=== PATIENT | male | born 1965 | race Caucasian/White ===

== ENCOUNTER 2016-12-30 13:46 | Emergency (ER) | payer OTHER ==
[~2016-12-30] VITALS: Ht 172.7 cm; Wt 114.0 kg
[2016-12-30 13:48] VITALS: TEMP 37; Ht 172.7 cm; Wt 114.0 kg
[2016-12-30] MEDS ORDERED: ESCI1TAB10 PO (14:17)
[2016-12-30] MEDS ORDERED: QUET1TAB34 PO (14:17)
[2016-12-30] MEDS ORDERED: PRED10TA PO (14:17)
[2016-12-30] MEDS ORDERED: LISI-725 PO (14:17)
[2016-12-30] MEDS ORDERED: ZNTT/150 PO (14:17)
[2016-12-30] MEDS ORDERED: AZAT50TA25 PO (14:17)
[2016-12-30] MEDS ORDERED: BISO10TA4 PO (14:17)
[2016-12-30] MEDS ORDERED: GLIP2.5T11 PO (14:17)
[2016-12-30] MEDS ORDERED: POTA20TA16 PO (14:17)
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
[2016-12-30] MEDS ORDERED: BUPIVACAINE 0.5 % 5 MG/1 ML MPF 30ML VIAL INFIL ONE (14:45)
[2016-12-30] MEDS ORDERED: XYLOCAINE 1%/SOD BICARB 20 ML VIAL INFIL ONE (14:45)
--- NOTE | 2016-12-30 14:57 | DIAGNOSTIC IMAGING REPORT ---
RIGHT FINGER(S) MIN 2 VIEWS ROUTINE CLINICAL HISTORY: right 4th finger Right trauma. Pain. COMPARISON: None. DISCUSSION: Interval avulsion of the distal 50% distal phalanx right fourth finger. This is imaged in a separate image. It contains the avulsed bone fragment... Soft tissue and a fracture component of the distal phalanx is present. A single small ossific fragment is adjacent to or within the amputation site. More proximal aspect of the finger is unremarkable. Considerable soft tissue disruption IMPRESSION: 1. Traumatic avulsion of the distal aspect right fourth finger at the level of the mid distal phalanx. 2. The amputated component contains soft tissue as well as containing the tuft and distal aspect of the distal phalanx 3. Considerable soft tissue edematous change. The above report was generated using voice recognition software. It may contain grammatical, syntax or spelling errors. Electronically signed by: Cayden Schultz M.D. 12/30/2016 2:56 PM Dictated Date/Time: 12/30/2016 2:51 PM
[2016-12-30] MEDS ORDERED: CEFAZOLIN IV 2,000 MG in DEXTROSE 5% 50ML 50 ML IV STA (14:58)
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
[2016-12-30 15:56] LABS: BUN/CREATININE RATIO 12.3 (10-20); CALCIUM 10.3 mg/dl (8.5-10.1); POTASSIUM 3.3 mmol/L (3.5-5.1)
[2016-12-30] MEDS ORDERED: POTASSIUM CHLORIDE 10 MEQ TABCR PO STA (16:14)
[2016-12-30] MEDS ORDERED: CEPH500C2 PO (16:33)
[2016-12-30] MEDS ORDERED: HYDR-3983 PO (16:33)
[2016-12-30 17:03] VITALS: BP 164/101; PULSE 89; O2SAT 98
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
== END 2016-12-30 16:55 | disposition home or self-care (01) ==
LOC: C.EDB 13:50 → C.EDA 16:55
DX: S68.124A Partial traumatic metacarpophalangeal amputation of right ring finger, initial encounter (principal); W23.0XXA Caught, crushed, jammed, or pinched between moving objects, initial encounter; Y93.89 Activity, other specified; I10 Essential (primary) hypertension; N28.9 Disorder of kidney and ureter, unspecified; R73.03 Prediabetes; Z80.9 Family history of malignant neoplasm, unspecified; Z79.899 Other long term (current) drug therapy; Z79.52 Long term (current) use of systemic steroids

== ENCOUNTER 2019-04-27 12:05 | Inpatient (IN) ==
[2019-04-27] MEDS ORDERED: SODIUM CHLORIDE 0.9% 500 ML IV STA (13:46)
[2019-04-27] MEDS ORDERED: SODIUM CHLORIDE 0.9% 250 ML IV PRN (13:46)
[2019-04-27 13:56] LABS: Hematocrit (blood only) 23.9 % (42-52); Hemoglobin 8.2 g/dL (14.0-18.0); Mean Corpuscular Hgb Conc 34.3 g/dL (32-36); Mean Corpuscular Volume 104.8 fL (80-100); Mean Platelet Volume 8.9 fL (7.4-10.4); Nucleated RBC # (auto) 0.16 K/uL (0-0); Nucleated RBC % (auto) 1.4 %; Platelet Count 305 K/uL (130-400); RDW Coefficient of Variation 15.8 % (11.5-14.5); RDW Standard Deviation 59.7 fL (36.4-46.3); Red Blood Count 2.28 M/uL (4.7-6.1); White Blood Count 11.55 K/uL (4.8-10.8)
[2019-04-27 14:10] LABS: INR 1.1 (0.9-1.1); Partial Thromboplastin Ratio 0.7; Partial Thromboplastin Time 20.2 Seconds (21.0-31.0); Prothrombin Time 10.9 Seconds (9.0-12.0)
[2019-04-27] MEDS ORDERED: PANTOprazole 80 MG in DEXTROSE 5% 100 ML IV SCH (14:15)
[2019-04-27 14:18] LABS: Alanine Aminotransferase 37 U/L (12-78); Albumin Level 2.6 gm/dl (3.4-5.0); Blood Urea Nitrogen 44 mg/dl (7-18); Calcium 9.6 mg/dl (8.5-10.1); Carbon Dioxide 24 mmol/L (21-32); Chloride 107 mmol/L (98-107); Est GFR (African American) 42.4; Est GFR (Non-African American) 36.6; Glucose 93 mg/dl (70-99); Magnesium 1.9 mg/dl (1.8-2.4); Potassium 3.4 mmol/L (3.5-5.1); Sodium 139 mmol/L (136-145)
[2019-04-27 14:22] LABS: Albumin Globulin Ratio 0.7 (0.9-2); Alkaline Phosphatase 84 U/L (45-117); Aspartate Aminotransferase 11 U/L (15-37); Bilirubin,Total 0.3 mg/dl (0.2-1); Globulin 3.6 gm/dl (2.5-4.0); Total Protein 6.2 gm/dl (6.4-8.2)
[2019-04-27 14:41] LABS: Appearance Urine Clear (Clear); Bilirubin Urine Negative (Negative); Blood Urine Negative (Negative); Color Urine Yellow; Epithelial Cell Urine Auto 20-30 /lpf (0-5); Glucose Urine UA Negative (Negative); Ketones Urine Trace (Negative); Leukocyte Esterase Urine Negative (Negative); Nitrite Urine Negative (Negative); Protein Urine 2+ (Negative); RBC Urine Automated 0-4 /hpf (0-4); Specific Gravity Urine 1.015 (1.000-1.030); Urobilinogen Urine Negative (Negative)
[2019-04-27] MEDS: PANTOprazole 40 MG in DEXTROSE 5% 100 ML IV SCH ×2 (14:51→20:46)
--- NOTE | 2019-04-27 14:57 | CT Scan Report ---
CT SCAN OF THE ABDOMEN AND PELVIS WITHOUT CONTRAST CLINICAL HISTORY: right flank pain COMPARISON STUDY: No previous studies for comparison. TECHNIQUE: CT scan of the abdomen and pelvis was performed from the lung bases to the proximal femurs . Images are reviewed in the axial, sagittal, and coronal planes. IV contrast was not administered fo r this examination. A dose lowering technique was utilized adhering to the principles of ALARA. CT DOSE: 1025.13 mGycm FINDINGS: Lower chest: The heart is normal in size and configuration, without pericardial effusion. The lung ba ses and pleural spaces are clear. There is visualization of the interventricular septum of the heart. This finding implies anemia. Please correlate with CBC. Liver: The unenhanced liver is normal in size, contour, and attenuation. There is no intrahepatic davidson iary ductal dilatation. Gallbladder: Cholelithiasis Spleen: Normal in size and attenuation. Pancreas: No focal masses are visualized. The pancreas is relatively formless with lack of the normal rectal interdigitations. Adrenal glands: Unremarkable. Kidneys: There is right-sided nephrolithiasis. There is no hydronephrosis. No ureteral calculi are vi sualized. Bowel: There are no transition zones indicate bowel obstruction. The appendix appears normal. There i s no acute diverticulitis. Peritoneum: There is no intraperitoneal free air or abdominal ascites. There are small fat-containing left inguinal hernia Vasculature: The abdominal aorta is normal in course and caliber. Adenopathy: None. Pelvic viscera: The bladder, and pelvic viscera are unremarkable. Skeletal structures: No destructive osseous lesions are seen. IMPRESSION: 1. No evidence of bowel obstruction. No evidence of free air 2. Right-sided nephrolithiasis. No evidence of hydronephrosis. No ureteral calculi identified 3. Normal appendix. No evidence of acute diverticulitis 4. Cholelithiasis 5. Visualization of the intraventricular septum the heart. This finding implies anemia. 6. Small fat-containing left inguinal hernia Electronically signed by: João Lantigua M.D. 04/27/2019 2:55 PM
[2019-04-27 15:07] LABS: Bacteria Urine Automated 1+ (Negative); Mucus Urine Present (None Prsent); Sperm Urine Present (None Prsent)
--- NOTE | 2019-04-27 16:03 | History & Physical Report ---
Date of Service April 27, 2019 Assessment & Plan (1) Acute upper GI bleed: (2) Symptomatic anemia: This is a 53yo M with a PMH of sarcoidosis, PILO on CPAP, CKD IIIb, DM II, GERD, depression and other medical problems listed below who presents with right flank pain and black stool x5 days was found to have symptomatic anemia and GI bleed. -Hemodynamically stable. Hgb of 8.2 (most recent outpatient hgb from 03/11 of 10.7). BUN of 44 and Cr of 2.02 (baseline Cr ~ 2) -Started on Protonix bolus and drip in the ED -Will keep NPO with maintenance D5 NSS fluids -Type & crossed for 2u prbcs, which are held. Blood consent signed -Trending H&H Q6H -GI consult placed (3) Cellulitis of left lower extremity: History of recent fungal infection, treated with antifungal cream -Still with warmth and erythema -Treating with cefepime -Venous Doppler of left lower extremity to evaluate for DVT (4) Sarcoidosis: Continue azathioprine and prednisone -Follows with Dr. Dang in [place] (5) CKD (chronic kidney disease), stage III: At baseline kidney function with creatinine of 2.02 -Continue to monitor with daily BMP (6) Diabetes mellitus, type II: A1c of 9.4 in February. Repeat A1c in a.m. -Hold home agents -SSI while in-patient -BSG Q6H while NPO (7) HTN (hypertension): Normotensive -Continue amlodipine, bisoprolol (8) PILO on CPAP: CPAP HS DVT Ppx: SCDs in setting of acute GI bleed Code status: FULL PCP: Dr. Yelena Ruiz Dispo: Admit to PCU. Plan to return home once medically stable. Patient seen in collaboration with Dr. Fortune. Please see addendum. History of Present Illness Chief Complaint: R flank pain, melena Primary Care Provider: YELENA RUIZ This is a 53yo M with a PMH of sarcoidosis, PILO on CPAP, CKD IIIb, DM II, GERD, depression and other medical problems listed below who presents with right flank pain and black stool x5 days. Patient states he has had aching right-sided flank pain for 3 days as well as 5 days of black tarry semi-formed stool with 1- 2 episodes daily. Patient also with bright red blood on toilet paper when wiping. Endorses lightheadedness and dizziness but no visual changes, chest pain or SOB. Denies any fever, chills, nausea, vomiting, abdominal pain, dysuria or hematuria. Denies history of GI bleeds in the past. Did have colonoscopy and EGD a few years ago and believes they were normal but is not positive. Does not take any aspirin or NSAIDs. Is on chronic prednisone 30 mg daily for the past 5 years for sarcoidosis, for which he follows with Dr. Dang (nephro in [place]). Currently not experiencing flank pain. Has some redness and warmth on LLE that patient has noticed over the past week. Was treated for a fungal infection with antifungal cream by PCP. Non-tender to palpation. In ED, patient is hemodynamically stable. Hgb of 8.2 (most recent outpatient hgb from 03/11 of 10.7). BUN of 44 and Cr of 2.02 (baseline Cr ~ 2). Allergies Allergy/AdvReac Type Severity Reaction Status Date / Time No Known Allergies Allergy Verified 04/28/19 13:25 Home Medications Home Medications Medication Instructions Recorded Confirmed Type amlodipine 10 mg PO QAM 06/21/18 04/27/19 History atorvastatin [Lipitor] 20 mg PO QAM 06/21/18 04/27/19 History azathioprine 50 mg PO QID 06/21/18 04/27/19 History bisoprolol fumarate 10 mg PO BID 06/21/18 04/27/19 History lisinopril [Zestril] 40 mg PO QAM 06/21/18 04/27/19 History prednisone 30 mg PO QAM 06/21/18 04/27/19 History famotidine 20 mg PO QAM PRN 04/27/19 04/27/19 History glipizide 10 mg PO HS 04/27/19 04/27/19 History glipizide 20 mg PO QAM 04/27/19 04/27/19 History Past Med/Surg History Medical History CKD (chronic kidney disease), stage III (Chronic) Depression (Chronic) Diabetes mellitus, type II (Chronic) GERD (gastroesophageal reflux disease) (Chronic) PILO on CPAP (Chronic) Sarcoidosis (Chronic) Surgical History H/O hernia repair (Chronic) Family History Other Heart disease Social History Preferred Language: Polish Communication Ability: Effective Analyst Business Analysis Required: No Beliefs That Will Affect Care: None Current Living Situation: Parent Other Information That Helps Us Care for You: No Feels Safe at Home: Yes Safety Concerns: Feels Safe At This Time Smoking Status: Never smoker Hx Alcohol Use: Yes Alcohol Intake Frequency: Rarely Hx Substance Use: No Review of Systems Review of Systems: At least ten systems reviewed and negative except as noted in the HPI. Physical Exam Physical Exam: General Appearance: WD/WN, vitals as above, NAD, sitting up in bed, pleasant, conversing easily, obese Head: normocephalic, atraumatic Eyes: normal inspection, PERRL, conjunctivae normal, anicteric sclerae ENT: external ear and nose normal, oropharynx normal Neck: trachea midline, no thyromegaly normal visual inspection Respiratory: normal respiratory effort, lungs clear to auscultation, no wheeze, rales, rhonchi. Normal insp/exp effort, no accessory muscle use Cardiovascular: regular rate, rhythm, no murmur, normal peripheral pulses. Vessels: no JVD or carotid bruit Chest: normal inspection of chest Abdomen/GI: normal bowel sounds, soft, nontender, no hepatosplenomegaly Extremities/Musculoskelatal: no cyanosis or clubbing, extremities motor strength 5/5. +L anterior river with erythema and warmth, no open skin lesions Neurologic: PERRL, EOMI, accommodation nl, no face palsy, no dysarthria CN's II-XI intact bilaterally and moves all extremities Psychiatric: A+Ox3, euthymic affect Skin: no rashes, normal color, warm/dry Results & Data Vital Signs (Past 12 Hours) Vital Signs Temp Pulse Pulse Resp BP Pulse Ox 04/27/19 15:30 62 12 122/69 100 04/27/19 15:00 62 17 99 04/27/19 14:30 89 18 116/63 97 04/27/19 14:13 59 L 20 100 04/27/19 14:05 77 21 121/53 L 97 04/27/19 13:59 63 20 96 04/27/19 13:37 56 L 18 04/27/19 13:00 64 19 113/69 04/27/19 12:07 36.8 C 67 18 113/64 99 Laboratory Results Short CBC 04/27/19 Range/Units 13:40 WBC 11.55 H (4.8-10.8) K/uL Hgb 8.2 L (14.0-18.0) g/dL Hct 23.9 L (42-52) % Plt Count 305 (130-400) K/uL BMP 04/27/19 13:40 Sodium 139 Potassium 3.4 L Chloride 107 Carbon Dioxide 24 BUN 44 H Creatinine 2.02 H Glucose 93 Calcium 9.6 Liver Function 04/27/19 Range/Units 13:40 Total Bilirubin 0.3 (0.2-1) mg/dl AST 11 L (15-37) U/L ALT 37 (12-78) U/L Alkaline Phosphatase 84 (45-117) U/L Albumin 2.6 L (3.4-5.0) gm/dl Urine 04/27/19 Range/Units 14:10 Urine Color Yellow Urine Appearance Clear (Clear) Urine pH 5.0 (4.5-7.5) Ur Specific [place] 1.015 (1.000-1.030) Urine Protein 2+ H (Negative) Urine Glucose (UA) Negative (Negative) Diagnostic Findings CT abd/pelvis: IMPRESSION: 1. No evidence of bowel obstruction. No evidence of free air 2. Right-sided nephrolithiasis. No evidence of hydronephrosis. No ureteral calculi identified 3. Normal appendix. No evidence of acute diverticulitis 4. Cholelithiasis 5. Visualization of the intraventricular septum the heart. This finding implies anemia. 6. Small fat-containing left inguinal hernia Supervising Physician Co-Signing Physician Notes Attending Addendum: delayed entry date of service as noted above care coordinated with MEJIA Lauren please refer to her notes for full details, I agree with her notes patient seen and examined, records reviewed by myself as well on exam, patient seen resting in bed, comfortable, not in distress Reports weakness times few days, no shortness of breath, dizziness No active abdominal pain, nausea no other symptoms VS noted and reviewed oriented x 3 , not in distress, speaks in sentences with no effort nor accessory muscle use normal rate, regular rhythm, no murmurs clear breath sounds bilaterally non distended, soft, nontender Left lower leg: Positive edema, moderate erythema, and warmth, nontender no neuro deficits WBC 11.55 Hg 8.2 Crea 2.02 ASSESSMENT AND PLAN Melena, likely upper GI bleed Chronic prednisone use --Monitor H&H, maintain hemoglobin above 8 --Protonix drip N.p.o. for now, GI consulted possible EGD tomorrow Left lower leg cellulitis --Apparently started as a fungal infection, prescribed with antifungal cream with worsening of edema, erythema --Cefepime IV ordered --Doppler ultrasound ordered to rule out DVT Sarcoidosis --Continue usual azathioprine and prednisone Continue further work-up and management as an outpatient other diagnoses and plan of care as per MEJIA Lauren's notes Jag Fortune MD
--- NOTE | 2019-04-27 16:34 | Emergency Department Note ---
Entered by Farnaz Trinidad acting as a scribe for History of Present Illness General Chief complaint: Flank Pain Stated complaint: PAIN IN RIGHT SIDE Time Seen by Provider: 04/27/19 13:37 Source: patient History of Present Illness Onset (ago): day(s) 4 Location: right (flank) Pain Consistency: + constant Maximum Pain Intensity: 5 Current Pain Intensity: 5 Quality: + other (lower right flank pain ) Exacerbated By: + other (lifting heavy weights ) Associated symptoms: + weakness and + other (+red/black stool; +dizziness; - abdominal pain; -testicular pain; -urinary symptoms ) The patient is a 53 year old male, with past medical history of kidney disease, sarcoidosis, and diabetes, who presents to the Emergency Room with complaints of constant lower, right flank pain over the past 4 days. The patient rates the pain as a 5/10, and he states the pain is worsened with lifting heavy weights. The patient also states he has been noticing red and black stool for the past 5 days. The patient states he has noticed some blood upon wiping, as well. The patient states his present symptoms have made him feel weak and dizzy. The patient denies abdominal pain, testicular pain, or urinary symptoms. The patient denies prior history of GI bleed, and the patient also denies having a kidney in the past. The patient states his leg swelling currently is at baseline. The patient reports his blood sugar this morning was 76. He reports that his sugar is typically in between 75-100 in the mornings. The patient reports he has never had a blood transfusion in the past. Home Medications Home Medications Medication Instructions Recorded Confirmed Type amlodipine 10 mg PO QAM 06/21/18 04/27/19 History atorvastatin [Lipitor] 20 mg PO QAM 06/21/18 04/27/19 History azathioprine 50 mg PO QID 06/21/18 04/27/19 History bisoprolol fumarate 10 mg PO BID 06/21/18 04/27/19 History lisinopril [Zestril] 40 mg PO QAM 06/21/18 04/27/19 History prednisone 30 mg PO QAM 06/21/18 04/27/19 History glipizide 10 mg PO HS 04/27/19 04/27/19 History glipizide 20 mg PO QAM 04/27/19 04/27/19 History ascorbic acid (vitamin C) 500 mg PO DAILY #30 cap 05/01/19 Rx cephalexin 500 mg PO QID 7 Days #28 cap 05/01/19 Rx ferrous sulfate 325 mg PO DAILY #30 tab 05/01/19 Rx omeprazole 40 mg PO BID #90 cap 05/01/19 Rx omeprazole 40 mg PO DAILY #30 cap 05/01/19 Rx sucralfate 10 ml PO ACHS #840 ml 05/01/19 Rx Allergies Allergy/AdvReac Type Severity Reaction Status Date / Time No Known Allergies Allergy Verified 04/28/19 13:25 Past Med/Surg History Medical History CKD (chronic kidney disease), stage III (Chronic) Depression (Chronic) Diabetes mellitus, type II (Chronic) GERD (gastroesophageal reflux disease) (Chronic) PILO on CPAP (Chronic) Sarcoidosis (Chronic) Surgical History H/O hernia repair (Chronic) Family History Other Heart disease Social History Preferred Language: Latvian Communication Ability: Effective Seconds Inspector Required: No Beliefs That Will Affect Care: None Current Living Situation: Parent Other Information That Helps Us Care for You: No Feels Safe at Home: Yes Safety Concerns: Feels Safe At This Time Smoking Status: Never smoker Hx Alcohol Use: Yes Alcohol Intake Frequency: Rarely Hx Substance Use: No Review of Systems See HPI for pertinent positives & negatives. and A total of 10 systems reviewed and were otherwise negative Physical Exam Vital Signs Vital Signs - 24 hr 04/27/19 12:07 04/27/19 13:00 04/27/19 13:37 Temperature 36.8 C Temperature Source Oral Sepsis Recent Fever Within 48 Hours No Sepsis New/Unexplained Change in Mental Status No Sepsis Action Taken by Nursing No Action Required Pulse Rate 67 64 56 L Pulse Rate [Apical] Pulse Rate from SpO2 Sensor Pulse Rhythm [Apical] Pulse Strength [Apical] Respiratory Rate 18 19 18 Respiratory Effort / Characteristics Non-Labored Respiratory Depth Normal Respiratory Pattern Regular Blood Pressure 113/64 113/69 Blood Pressure Mean 80 83 Blood Pressure Position Sitting Blood Pressure Position [Right Arm] Pulse Oximetry 99 Oxygen Delivery Method Room Air 04/27/19 13:59 04/27/19 14:05 04/27/19 14:13 Temperature Temperature Source Sepsis Recent Fever Within 48 Hours Sepsis New/Unexplained Change in Mental Status Sepsis Action Taken by Nursing Pulse Rate 77 59 L Pulse Rate [Apical] 63 Pulse Rate from SpO2 Sensor 75 Pulse Rhythm [Apical] Regular Pulse Strength [Apical] Normal Respiratory Rate 20 21 20 Respiratory Effort / Characteristics Non-Labored Spontaneous Respiratory Depth Normal Respiratory Pattern Regular Blood Pressure 121/53 L Blood Pressure Mean 70 75 Blood Pressure Position Blood Pressure Position [Right Arm] Sitting Pulse Oximetry 96 97 100 Oxygen Delivery Method Room Air Room Air 04/27/19 14:30 04/27/19 15:00 04/27/19 15:30 Temperature Temperature Source Sepsis Recent Fever Within 48 Hours Sepsis New/Unexplained Change in Mental Status Sepsis Action Taken by Nursing Pulse Rate 89 62 62 Pulse Rate [Apical] Pulse Rate from SpO2 Sensor 62 62 61 Pulse Rhythm [Apical] Pulse Strength [Apical] Respiratory Rate 18 17 12 Respiratory Effort / Characteristics Respiratory Depth Respiratory Pattern Blood Pressure 116/63 122/69 Blood Pressure Mean 80 86 Blood Pressure Position Blood Pressure Position [Right Arm] Pulse Oximetry 97 99 100 Oxygen Delivery Method 04/27/19 15:57 04/27/19 16:00 Temperature Temperature Source Sepsis Recent Fever Within 48 Hours Sepsis New/Unexplained Change in Mental Status Sepsis Action Taken by Nursing Pulse Rate 59 L 57 L Pulse Rate [Apical] Pulse Rate from SpO2 Sensor 59 L 58 L Pulse Rhythm [Apical] Pulse Strength [Apical] Respiratory Rate 13 14 Respiratory Effort / Characteristics Respiratory Depth Respiratory Pattern Blood Pressure 122/69 118/74 Blood Pressure Mean 86 88 Blood Pressure Position Blood Pressure Position [Right Arm] Pulse Oximetry 99 100 Oxygen Delivery Method GENERAL: Patient is in no acute distress. HEENT: No acute trauma, normocephalic atraumatic, mucous membranes moist, no nasal congestion, no scleral icterus. NECK: No stridor, no adenopathy, no meningismus, trachea is midline. LUNGS: Clear to auscultation bilaterally, no wheeze, no rhonchi, breath sounds equal. HEART: Without murmurs gallops or rubs, regular rate and rhythm. ABDOMEN: Soft, nontender, bowel sounds positive, no hernias, no peritonitis. BACK: Right flank discomfort with percussion. EXTREMITIES: No cyanosis. Moderate bilateral pedal edema. Full range of motion of all the joints without pain or difficulty, no signs for acute trauma. RECTAL: Black stool, heme positive. NEUROLOGIC: Oriented x 3, no acute motor or sensory deficits, no focal weakness. SKIN: No rash, no jaundice, no diaphoresis. Pale. Course 1347: Past medical records reviewed. The patient was evaluated in room B3B. A co mplete history and physical exam was performed. 1358: I discussed the patient's case with Pharmacy. Pharmacy is going to give the patient a Protonix bolus and drip. 1520: I updated the patient on his case. 1530: I reviewed the patient's case with Erika Buck. Dr. Fátima Buck will evaluate the patient for further management. Consultations Consultation #1: I discussed the patient's case with Pharmacy. Pharmacy is going to give the patient a Protonix bolus and drip. Time: 13:58 Consultation #2: I reviewed the patient's case with Erika Buck. Dr. Fátima Buck will evaluate the patient for further management. Time: 15:30 Administered Medications Discontinued Medications Acetaminophen (Tylenol) 650 mg PO Q4H PRN PRN Reason: Pain Stop: 05/29/19 19:44 Last Admin: 04/29/19 20:04 Dose: 650 mg Documented by: [id number] Azathioprine (Imuran) 50 mg PO QID [facility] Stop: 05/28/19 16:59 Last Admin: 04/29/19 20:08 Dose: 50 mg Documented by: [id number] Admin: 04/29/19 17:13 Dose: 50 mg Documented by: [id number] Admin: 04/29/19 12:51 Dose: 50 mg Documented by: [id number] Admin: 04/29/19 07:41 Dose: 50 mg Documented by: [id number] Admin: 04/28/19 21:00 Dose: 50 mg Documented by: [id number] Admin: 04/28/19 17:44 Dose: 50 mg Documented by: [id number] Bisoprolol Fumarate (Bisoprolol Fumarate) 1 ea PO BID [facility] Stop: 05/28/19 20:59 Last Admin: 05/01/19 08:28 Dose: 1 ea Documented by: [id number] Admin: 04/30/19 21:42 Dose: 1 ea Documented by: [id number] Admin: 04/30/19 09:04 Dose: 1 ea Documented by: [id number] Admin: 04/29/19 22:53 Dose: 1 ea Documented by: [id number] Admin: 04/29/19 07:41 Dose: 1 ea Documented by: [id number] Admin: 04/28/19 21:02 Dose: 1 ea Documented by: [id number] Sodium Chloride (Nss) 500 mls @ 999 mls/hr IV .Q31M STA Stop: 04/27/19 14:16 Last Infusion: 04/27/19 14:53 Dose: 0 mls/hr Documented by: [id number] Admin: 04/27/19 14:09 Dose: 999 mls/hr Documented by: [id number] Pantoprazole Sodium 80 mg/ (Dextrose) 120 mls @ 480 mls/hr IV TODAY@1415 [facility] Stop: 04/27/19 14:29 Last Infusion: 04/27/19 14:38 Dose: 0 mls/hr Documented by: [id number] Admin: 04/27/19 14:23 Dose: 480 mls/hr Documented by: [id number] Pantoprazole Sodium 40 mg/ (Dextrose) 100 mls @ 20 mls/hr IV Q5H [facility] Stop: 04/29/19 11:59 Last Infusion: 04/29/19 14:05 Dose: 0 mls/hr Documented by: [id number] Admin: 04/29/19 10:23 Dose: 20 mls/hr Documented by: [id number] Infusion: 04/29/19 10:22 Dose: 20 mls/hr Documented by: [id number] Admin: 04/29/19 05:22 Dose: 20 mls/hr Documented by: [id number] Infusion: 04/29/19 05:22 Dose: 20 mls/hr Documented by: [id number] Admin: 04/29/19 00:25 Dose: 20 mls/hr Documented by: [id number] Infusion: 04/29/19 00:25 Dose: 20 mls/hr Documented by: [id number] Admin: 04/28/19 19:39 Dose: 20 mls/hr Documented by: [id number] Infusion: 04/28/19 16:50 Dose: 20 mls/hr Documented by: [id number] Admin: 04/28/19 11:50 Dose: 20 mls/hr Documented by: [id number] Infusion: 04/28/19 11:37 Dose: 20 mls/hr Documented by: [id number] Admin: 04/28/19 06:37 Dose: 20 mls/hr Documented by: [id number] Infusion: 04/28/19 06:08 Dose: 20 mls/hr Documented by: [id number] Admin: 04/28/19 01:08 Dose: 20 mls/hr Documented by: [id number] Infusion: 04/28/19 01:08 Dose: 20 mls/hr Documented by: [id number] Admin: 04/27/19 20:46 Dose: 20 mls/hr Documented by: [id number] Infusion: 04/27/19 19:51 Dose: 20 mls/hr Documented by: [id number] Admin: 04/27/19 14:51 Dose: 20 mls/hr Documented by: [id number] Dextrose/Sodium Chloride (D5w And Nss) 1,000 mls @ 100 mls/hr IV .Q10H [facility] Stop: 05/27/19 18:44 Last Admin: 04/28/19 09:46 Dose: Not Given Documented by: [id number] Infusion: 04/28/19 08:21 Dose: 0 mls/hr Documented by: [id number] Admin: 04/27/19 20:46 Dose: 100 mls/hr Documented by: [id number] Cefepime HCl 2,000 mg/ Syringe 20 mls @ 5 mls/min IV Q24H [facility]; Protocol Stop: 05/07/19 19:59 Last Admin: 04/30/19 21:40 Dose: 5 mls/min Documented by: [id number] Admin: 04/29/19 20:04 Dose: 5 mls/min Documented by: [id number] Admin: 04/28/19 19:40 Dose: 5 mls/min Documented by: [id number] Admin: 04/27/19 20:46 Dose: 5 mls/min Documented by: [id number] Potassium Chloride/Sodium Chloride (Normal Saline W/20 Meq Kcl) 20 meq in 1,000 mls @ 50 mls/hr IV .Q20H [facility] Stop: 05/28/19 08:59 Last Infusion: 04/29/19 14:05 Dose: 0 mls/hr Documented by: [id number] Admin: 04/29/19 12:02 Dose: 50 mls/hr Documented by: [id number] Infusion: 04/29/19 12:02 Dose: 50 mls/hr Documented by: [id number] Infusion: 04/28/19 22:56 Dose: 50 mls/hr Documented by: [id number] Admin: 04/28/19 19:40 Dose: 100 mls/hr Documented by: [id number] Infusion: 04/28/19 19:40 Dose: 100 mls/hr Documented by: [id number] Admin: 04/28/19 09:59 Dose: 100 mls/hr Documented by: [id number] Insulin Aspart (Novolog Flexpen) 0 units SC Q6 [facility] Stop: 05/27/19 20:59 Last Admin: 04/28/19 21:00 Dose: 1 units Documented by: [id number] Cosigned by: [id number] Admin: 04/28/19 17:47 Dose: 3 units Documented by: [id number] Cosigned by: [id number] Admin: 04/28/19 11:39 Dose: Not Given Documented by: [id number] Cosigned by: [id number] Admin: 04/28/19 06:12 Dose: Not Given Documented by: [id number] Cosigned by: [id number] Admin: 04/28/19 00:20 Dose: Not Given Documented by: [id number] Cosigned by: [id number] Admin: 04/27/19 20:47 Dose: Not Given Documented by: [id number] Cosigned by: [id number] Insulin Aspart (Novolog Flexpen) 0 units SC ACHS [facility] Stop: 05/29/19 07:29 Last Admin: 04/30/19 17:00 Dose: 10 units Documented by: [id number] Cosigned by: [id number] Admin: 04/30/19 12:07 Dose: 6 units Documented by: [id number] Cosigned by: [id number] Admin: 04/30/19 09:05 Dose: 5 units Documented by: [id number] Cosigned by: [id number] Admin: 04/29/19 20:23 Dose: 3 units Documented by: [id number] Cosigned by: [id number] Admin: 04/29/19 17:13 Dose: 4 units Documented by: [id number] Cosigned by: [id number] Admin: 04/29/19 12:00 Dose: 7 units Documented by: [id number] Cosigned by: [id number] Admin: 04/29/19 08:13 Dose: 4 units Documented by: [id number] Cosigned by: [id number] Insulin Aspart (Novolog Flexpen) 0 units SC ACHS [facility] Stop: 05/29/19 07:29 Last Admin: 05/01/19 13:22 Dose: 14 units Documented by: [id number] Cosigned by: [id number] Admin: 05/01/19 08:32 Dose: 8 units Documented by: [id number] Cosigned by: [id number] Admin: 04/30/19 21:53 Dose: 6 units Documented by: [id number] Cosigned by: [id number] Insulin Glargine (Lantus Solostar Pen) 0 - 12 units SC BID [facility]; Protocol Stop: 05/30/19 20:59 Last Admin: 05/01/19 08:31 Dose: 8 units Documented by: [id number] Cosigned by: [id number] Admin: 04/30/19 21:52 Dose: 12 units Documented by: [id number] Cosigned by: [id number] Lidocaine HCl (Xylocaine 2%) Confirm Administered Dose 4 ml INFIL .STK-MED ONE Stop: 04/28/19 13:57 Last Admin: 04/28/19 18:57 Dose: Not Given Documented by: [id number] Midazolam HCl (Versed) Confirm Administered Dose 2 mg .ROUTE .STK-MED ONE Stop: 04/28/19 13:55 Last Admin: 04/28/19 18:57 Dose: Not Given Documented by: [id number] Ondansetron HCl (Zofran) Confirm Administered Dose 4 mg .ROUTE .STK-MED ONE Stop: 04/28/19 13:57 Last Admin: 04/28/19 18:58 Dose: Not Given Documented by: [id number] Pantoprazole Sodium (Protonix) 40 mg PO BID [facility] Stop: 05/29/19 20:59 Last Admin: 05/01/19 08:28 Dose: 40 mg Documented by: [id number] Admin: 04/30/19 21:42 Dose: 40 mg Documented by: [id number] Admin: 04/30/19 09:04 Dose: 40 mg Documented by: [id number] Admin: 04/29/19 20:09 Dose: 40 mg Documented by: [id number] Prednisone (Prednisone) 30 mg PO QAM [facility] Stop: 05/29/19 08:59 Last Admin: 04/30/19 09:04 Dose: 30 mg Documented by: [id number] Prednisone (Prednisone) 30 mg PO QAM [facility] Stop: 05/30/19 08:59 Last Admin: 05/01/19 08:28 Dose: 30 mg Documented by: [id number] Admin: 04/30/19 10:26 Dose: Not Given Documented by: [id number] Propofol (Diprivan) Confirm Administered Dose 200 mg IV .STK-MED ONE Stop: 04/28/19 13:57 Last Admin: 04/28/19 18:57 Dose: Not Given Documented by: [id number] Sucralfate (Carafate Tab) 1 gm PO QID [facility] Stop: 05/28/19 16:59 Last Admin: 05/01/19 13:27 Dose: 1 gm Documented by: [id number] Admin: 05/01/19 08:28 Dose: 1 gm Documented by: [id number] Admin: 04/30/19 21:42 Dose: 1 gm Documented by: [id number] Admin: 04/30/19 17:01 Dose: 1 gm Documented by: [id number] Admin: 04/30/19 14:31 Dose: 1 gm Documented by: [id number] Admin: 04/30/19 09:04 Dose: 1 gm Documented by: [id number] Admin: 04/29/19 20:09 Dose: 1 gm Documented by: [id number] Admin: 04/29/19 17:13 Dose: 1 gm Documented by: [id number] Admin: 04/29/19 12:51 Dose: 1 gm Documented by: [id number] Admin: 04/29/19 07:41 Dose: 1 gm Documented by: [id number] Admin: 04/28/19 21:01 Dose: 1 gm Documented by: [id number] Admin: 04/28/19 17:44 Dose: 1 gm Documented by: [id number] Impression & Plan Acute GI bleeding, Anemia, Weakness, Heme positive stool Critical Care Time Critical Care Time: Yes Total Critical Care Time: 32 I have personally spent 32 minutes of critical care time in the direct management of this patient. This includes bedside care, interpretation of diagnostic studies, and testing, discussion with consultants, patient, and family members, and other required patient management activities. This 32 minutes is in excess of all separately billable procedures. Discharge Plan Visit Data *Final* Discharge Date/Time: 04/27/19 17:38 Chief Complaint: Flank Pain Stated Complaint: PAIN IN RIGHT SIDE ED Provider: Hemal Roque Discharge Problem: Acute GI bleeding, Anemia, Weakness, Heme positive stool Patient Disposition: Admitted As Inpatient Condition: Good Discharge Instructions Interventions: ED Discharge Assessment Last Done: 04/27/19 17:38 Medical Decision Making Differential Diagnosis Differential diagnoses include GI bleed, ulcer, gastritis, anemia, renal failure, coagulopathy, hydronephrosis, ureteral stone, UTI, amongst others were considered. Medical Records Attestation: I reviewed the patient's medical records. Home Medications Current Medication List: was personally reviewed by me Laboratory Data Attestation: I reviewed the patient's lab results. Result diagrams: 05/01/19 05:05 05/01/19 05:05 Lab Results 04/27/19 04/27/19 04/27/19 Range/Units 13:40 13:40 13:40 WBC 11.55 H (4.8-10.8) K/uL RBC 2.28 L (4.7-6.1) M/uL Hgb 8.2 L (14.0-18.0) g/dL Hct 23.9 L (42-52) % MCV 104.8 H (80-100) fL MCH 36.0 H (25-34) pg MCHC 34.3 (32-36) g/dL RDW Std Deviation 59.7 H (36.4-46.3) fL RDW Coeff of Danae 15.8 H (11.5-14.5) % Plt Count 305 (130-400) K/uL MPV 8.9 (7.4-10.4) fL Absolute Nucleated RBC 0.16 H (0-0) K/uL Nucleated RBC % (auto) 1.4 % PT 10.9 (9.0-12.0) Seconds INR 1.1 (0.9-1.1) APTT 20.2 L (21.0-31.0) Seconds PTT Ratio 0.7 Sodium 139 (136-145) mmol/L Potassium 3.4 L (3.5-5.1) mmol/L Chloride 107 (98-107) mmol/L Carbon Dioxide 24 (21-32) mmol/L Anion Gap 8.0 (3-11) BUN 44 H (7-18) mg/dl Creatinine 2.02 H (0.6-1.4) mg/dl Est Cr Clr Drug Dosing Not Reportable Est GFR ( Amer) 42.4 Est GFR (Non-Af Amer) 36.6 BUN/Creatinine Ratio 22.0 H (10-20) Glucose 93 (70-99) mg/dl Calcium 9.6 (8.5-10.1) mg/dl Magnesium 1.9 (1.8-2.4) mg/dl Total Bilirubin 0.3 (0.2-1) mg/dl AST 11 L (15-37) U/L ALT 37 (12-78) U/L Alkaline Phosphatase 84 (45-117) U/L Total Protein 6.2 L (6.4-8.2) gm/dl Albumin 2.6 L (3.4-5.0) gm/dl Globulin 3.6 (2.5-4.0) gm/dl Albumin/Globulin Ratio 0.7 L (0.9-2) Urine Color Urine Appearance (Clear) Urine pH (4.5-7.5) Ur Specific [place] (1.000-1.030) Urine Protein (Negative) Urine Glucose (UA) (Negative) Urine Ketones (Negative) Urine Blood (Negative) Urine Nitrite (Negative) Urine Bilirubin (Negative) Urine Urobilinogen (Negative) Ur Leukocyte Esterase (Negative) Urine WBC (Auto) (0-5) /hpf Urine RBC (Auto) (0-4) /hpf U Hyaline Cast (Auto) (0-5) /lpf U Epithel Cells (Auto) (0-5) /lpf Urine Bacteria (Auto) (Negative) Urine Mucus (None Prsent) Urine Sperm (None Prsent) Blood Type Antibody Screen Crossmatch 04/27/19 04/27/19 Range/Units 14:10 14:57 WBC (4.8-10.8) K/uL RBC (4.7-6.1) M/uL Hgb (14.0-18.0) g/dL Hct (42-52) % MCV (80-100) fL MCH (25-34) pg MCHC (32-36) g/dL RDW Std Deviation (36.4-46.3) fL RDW Coeff of Danae (11.5-14.5) % Plt Count (130-400) K/uL MPV (7.4-10.4) fL Absolute Nucleated RBC (0-0) K/uL Nucleated RBC % (auto) % PT (9.0-12.0) Seconds INR (0.9-1.1) APTT (21.0-31.0) Seconds PTT Ratio Sodium (136-145) mmol/L Potassium (3.5-5.1) mmol/L Chloride (98-107) mmol/L Carbon Dioxide (21-32) mmol/L Anion Gap (3-11) BUN (7-18) mg/dl Creatinine (0.6-1.4) mg/dl Est Cr Clr Drug Dosing Est GFR ( Amer) Est GFR (Non-Af Amer) BUN/Creatinine Ratio (10-20) Glucose (70-99) mg/dl Calcium (8.5-10.1) mg/dl Magnesium (1.8-2.4) mg/dl Total Bilirubin (0.2-1) mg/dl AST (15-37) U/L ALT (12-78) U/L Alkaline Phosphatase (45-117) U/L Total Protein (6.4-8.2) gm/dl Albumin (3.4-5.0) gm/dl Globulin (2.5-4.0) gm/dl Albumin/Globulin Ratio (0.9-2) Urine Color Yellow Urine Appearance Clear (Clear) Urine pH 5.0 (4.5-7.5) Ur Specific [place] 1.015 (1.000-1.030) Urine Protein 2+ H (Negative) Urine Glucose (UA) Negative (Negative) Urine Ketones Trace H (Negative) Urine Blood Negative (Negative) Urine Nitrite Negative (Negative) Urine Bilirubin Negative (Negative) Urine Urobilinogen Negative (Negative) Ur Leukocyte Esterase Negative (Negative) Urine WBC (Auto) 1-5 (0-5) /hpf Urine RBC (Auto) 0-4 (0-4) /hpf U Hyaline Cast (Auto) 10-30 H (0-5) /lpf U Epithel Cells (Auto) 20-30 H (0-5) /lpf Urine Bacteria (Auto) 1+ H (Negative) Urine Mucus Present A (None Prsent) Urine Sperm Present A (None Prsent) Blood Type B Positive Antibody Screen NEGATIVE Crossmatch See Detail Imaging Data Radiologist's Impression: Radiology results as stated below per my review and the radiologist's interpretation: CT SCAN OF THE ABDOMEN AND PELVIS WITHOUT CONTRAST CLINICAL HISTORY: right flank pain COMPARISON STUDY: No previous studies for comparison. TECHNIQUE: CT scan of the abdomen and pelvis was performed from the lung bases to the proximal femurs. Images are reviewed in the axial, sagittal, and coronal planes. IV contrast was not administered for this examination. A dose lowering technique was utilized adhering to the principles of ALARA. CT DOSE: 1025.13 mGycm FINDINGS: Lower chest: The heart is normal in size and configuration, without pericardial effusion. The lung bases and pleural spaces are clear. There is visualization of the interventricular septum of the heart. This finding implies anemia. Please correlate with CBC. Liver: The unenhanced liver is normal in size, contour, and attenuation. There is no intrahepatic biliary ductal dilatation. Gallbladder: Cholelithiasis Spleen: Normal in size and attenuation. Pancreas: No focal masses are visualized. The pancreas is relatively formless with lack of the normal rectal interdigitations. Adrenal glands: Unremarkable. Kidneys: There is right-sided nephrolithiasis. There is no hydronephrosis. No ureteral calculi are visualized. Bowel: There are no transition zones indicate bowel obstruction. The appendix appears normal. There is no acute diverticulitis. Peritoneum: There is no intraperitoneal free air or abdominal ascites. There are small fat-containing left inguinal hernia Vasculature: The abdominal aorta is normal in course and caliber. Adenopathy: None. Pelvic viscera: The bladder, and pelvic viscera are unremarkable. Skeletal structures: No destructive osseous lesions are seen. IMPRESSION: 1. No evidence of bowel obstruction. No evidence of free air 2. Right-sided nephrolithiasis. No evidence of hydronephrosis. No ureteral calculi identified 3. Normal appendix. No evidence of acute diverticulitis 4. Cholelithiasis 5. Visualization of the intraventricular septum the heart. This finding implies anemia. 6. Small fat-containing left inguinal hernia Electronically signed by: João Lantigua M.D. 04/27/2019 2:55 PM ECG Data Attestation: I personally reviewed and interpreted this ECG as follows: Indication: + bradycardia Rate (beats per minute): 54 Rhythm: + sinus bradycardia ECG ST segments: no ST elevation ECG Findings: + Other (QTC 400); no PACs and no PVCs Blood Pressure Blood Pressure Findings: Elevated blood pressure Blood Pressure Disposition: elevated BP felt to be situational MDM Narrative There is a subtle leukocytosis, this could be consistent with the stress of his situation or of course infection. Hemoglobin was low at 8.2, this is a significant drop for him. The patient had a normal platelet count. No coagulopathy. Renal panel testing does show a high creatinine, this is baseline though for the patient. His BUN today is higher than baseline. No liver enzyme elevation. Urinalysis does not show any evidence for infection, contamination was suspected. EKG shows a sinus rhythm, no acute ischemia. Abdominal and pelvis CT shows some stones within the kidneys, no ureteral stone or hydronephrosis. No acute surgical process by CT scan. On exam, the patient was pale, his stool was black and heme positive. The patient received IV saline. He was given a bolus of IV Protonix and then placed on a Protonix drip. He was ordered for blood for transfusion but since his hemoglobin was above 8, since he was not hypotensive, the blood was not given in the ED. He may require a transfusion though if the hemoglobin drops further. The patient presents with right flank pain, black stool. He appears to have a G I bleed, likely upper GI bleed. He requires resuscitation and a GI consult. I spoke to the patient and case management. The on-call hospitalist was consulted. The scribe's documentation has been prepared under my direction and personally reviewed by me in its entirety. I confirm that the note above accurately reflects all work, treatment, procedures, and medical decision making performed by me.
[2019-04-27] MEDS ORDERED: CEFEPIME CONSULT ACTIVE PRN (17:37)
[2019-04-27] MEDS ORDERED: ONDANSETRON INJ 2 MG/ML 2 ML VIAL IV PRN (18:21)
[2019-04-27] MEDS ORDERED: GLUCOSE 10 TABS/TUBE PO PRN (18:32)
[2019-04-27] MEDS ORDERED: DEXTROSE 50% 50 ML SYRINGE IV PRN (18:32)
[2019-04-27] MEDS ORDERED: CARBOHYDRATES FOR HYPOGLYCEMIA PO PRN (18:32)
[2019-04-27] MEDS ORDERED: GLUCOSE 40% GEL 15 GM TUBE PO PRN (18:32)
[2019-04-27] MEDS ORDERED: GLUCAGON FOR INJ 1 MG VIAL SQ PRN (18:32)
[2019-04-27 19:56] LABS: Hematocrit (blood only) 22.8 % (42-52); Hemoglobin 7.6 g/dL (14.0-18.0)
[2019-04-27] MEDS: D5W AND NSS 1,000 ML IV SCH (20:46)
[2019-04-27] MEDS: CEFEPIME 2,000 MG in SYRINGE 7.5 ML IV SCH (20:46)
[2019-04-27] MEDS: INSULIN ASPART 100 UNITS/ML 3 ML PEN SC SCH (20:47)
[2019-04-28] MEDS: INSULIN ASPART 100 UNITS/ML 3 ML PEN SC SCH ×5 (00:20→21:00)
[2019-04-28] MEDS: PANTOprazole 40 MG in DEXTROSE 5% 100 ML IV SCH ×4 (01:08→19:39)
[2019-04-28 01:50] LABS: Hematocrit (blood only) 21.5 % (42-52); Hemoglobin 7.3 g/dL (14.0-18.0); Mean Corpuscular Hemoglobin 35.6 pg (25-34); Mean Corpuscular Volume 104.9 fL (80-100); Mean Platelet Volume 8.8 fL (7.4-10.4); Nucleated RBC # (auto) 0.09 K/uL (0-0); Nucleated RBC % (auto) 1.3 %; Platelet Count 282 K/uL (130-400); RDW Coefficient of Variation 16.1 % (11.5-14.5); RDW Standard Deviation 60.2 fL (36.4-46.3); Red Blood Count 2.05 M/uL (4.7-6.1); White Blood Count 7.03 K/uL (4.8-10.8)
[2019-04-28 04:54] LABS: Albumin Globulin Ratio 0.8 (0.9-2); Albumin Level 2.4 gm/dl (3.4-5.0); BUN Creatinine Ratio 19.3 (10-20); Bilirubin,Total 0.4 mg/dl (0.2-1); Calcium 9.2 mg/dl (8.5-10.1); Creatinine Clr Calc Pharmacy 54.9 ml/min; Est GFR (African American) 46.8; Est GFR (Non-African American) 40.4; Ferritin 87.7 ng/ml (8-388); Globulin 3.2 gm/dl (2.5-4.0); Potassium 3.3 mmol/L (3.5-5.1); Total Protein 5.6 gm/dl (6.4-8.2)
[2019-04-28 05:29] LABS: Estimated Average Glucose 160 mg/dl; Hemoglobin A1C 7.2 % (4.5-5.6)
--- NOTE | 2019-04-28 07:18 | Gastrointestinal Consultation ---
Date of Consultation April 28, 2019 Assessment & Plan (1) Acute upper GI bleed: 1. EGD today by Dr. Edi Tonwsend. 2. Continue pantoprazole drip and n.p.o.. 3. Further recommendations to follow EGD. Present on Admission?: Yes Supervising Physician Co-Signing Physician Notes I saw and evaluated the patient. He presents with a history of melena and a significant drop in his hemoglobin and hematocrit. Of note the patient has a long history of sarcoidosis and is on high-dose prednisone for treatment of renal failure. The patient denies having abdominal pain, nausea vomiting or hematemesis. Physical examination No obvious distress Patient with a moonlike face Impression: History of melena and drop in hemoglobin and hematocrit suggestive of left upper gastrointestinal bleeding. Recommendations Continue with IV Protonix Upper endoscopy today History of Present Illness Reason for Consultation: Upper GI Bleed Requesting Physician: Dr. Fortune Attending Physician: Jag Fortune MD History of Present Illness Mr. Isidro Neely is a 53 yr old male patient without a local PCP, who presented to the ED yesterday for flank pain, lightheadedness, dizziness. GI is consulted for pt report of 5 days of passing 1-2 loose black BMs/day with some bright red blood on the toilet paper as well. His typical bowel movement pattern is 1-2 loose to formed bowel movements per day, but the bowel movements became a black color and had a foul odor 5 days ago. He has not had any abdominal pain nausea or vomiting. He carries a hx of sarcoidosis (on Azathioprine 30 and prednisone 30 daily), PILO on CPAP, CKD-3, DM II, GERD (famotidine 20/day), and depression. He is also being treated for left lower leg cellulitis since admission. He denies any recent NSAID use. He is not on any antiplatelet or anticoagulant medications. He tells me that he most recently underwent EGD about 5 years ago at [facility] and colonoscopy about 2 years ago at the same facility. He does not recall the findings. On arrival, Hb 8.2, down from 13 in Jun 2018. He received one unit of RBCs and Hb is 7.3 this morning. BUN is 36, Cr 186. He is on a pantoprazole drip and has not passed a BM since arrival. Allergies Allergy/AdvReac Type Severity Reaction Status Date / Time No Known Allergies Allergy Verified 04/28/19 13:25 Home Medications Home Medications Medication Instructions Recorded Confirmed Type amlodipine 10 mg PO QAM 06/21/18 04/27/19 History atorvastatin [Lipitor] 20 mg PO QAM 06/21/18 04/27/19 History azathioprine 50 mg PO QID 06/21/18 04/27/19 History bisoprolol fumarate 10 mg PO BID 06/21/18 04/27/19 History lisinopril [Zestril] 40 mg PO QAM 06/21/18 04/27/19 History prednisone 30 mg PO QAM 06/21/18 04/27/19 History famotidine 20 mg PO QAM PRN 04/27/19 04/27/19 History glipizide 10 mg PO HS 04/27/19 04/27/19 History glipizide 20 mg PO QAM 04/27/19 04/27/19 History Patient History Medical History CKD (chronic kidney disease), stage III (Chronic) Depression (Chronic) Diabetes mellitus, type II (Chronic) GERD (gastroesophageal reflux disease) (Chronic) PILO on CPAP (Chronic) Sarcoidosis (Chronic) Surgical History H/O hernia repair (Chronic) Family History Other Heart disease Social History Preferred Language: [place] Communication Ability: Effective Rides Attendant Required: No Beliefs That Will Affect Care: None Current Living Situation: Parent Other Information That Helps Us Care for You: No Feels Safe at Home: Yes Safety Concerns: Feels Safe At This Time Smoking Status: Never smoker Hx Alcohol Use: Yes Alcohol Intake Frequency: Rarely Hx Substance Use: No Review of Systems Review of Systems: ROS: Gen: + weakness/dizziness but did not faint. No fevers, no weight loss Eyes: No eye redness, or pain, no recent vision changes Resp: No SOB, no cough Cardio: No palpitations/irregular beats, no chest pain GI: No abdominal pain, no nausea/vomiting : Denies pain on urination Skin: No jaundice, itching or new rashes Physical Exam Constitutional: WD/WN, vitals as above + obese Eyes: PERRL, conjunctivae normal, anicteric sclerae ENMT: external ear and nose normal, oropharynx normal Neck: trachea midline, no thyromegaly Respiratory: normal respiratory effort, lungs clear to auscultation Cardiovascular: RRR, no murmur, no edema Gastrointestinal (Abdomen): normal bowel sounds, soft, nontender, no hepatosplenomegaly Musculoskeletal: no cyanosis or clubbing, extremities motor strength 5/5 Skin: Diffuse rash on the left lower leg, multiple areas of ecchymosis and scabbing on the lower arms. Neurologic: PERRL, EOMI, accommodation nl, no face palsy, no dysarthria Psychiatric: A+Ox3, euthymic affect Lymphatic: no cervical or axillary lymphadenopathy Results & Data Vital Signs (Past 12 Hours) Vital Signs Temp Pulse Pulse Resp BP Pulse Ox 04/28/19 00:00 36.8 C 65 18 100/62 04/27/19 20:28 77 04/27/19 19:45 36.8 C 62 18 107/67 100 Laboratory Results Hb 8.2 -> 7.3. BUN 36, Cr 1.86. Diagnostic Findings Ct abd/pelvis without contrast 04/27/19: 1. No evidence of bowel obstruction. No evidence of free air 2. Right-sided nephrolithiasis. No evidence of hydronephrosis. No ureteral calculi identified 3. Normal appendix. No evidence of acute diverticulitis 4. Cholelithiasis 5. Visualization of the intraventricular septum the heart. This finding implies anemia. 6. Small fat-containing left inguinal hernia
--- NOTE | 2019-04-28 08:33 | Ultrasound Report ---
US venous doppler LE LT HISTORY: 53 years-old Male erythema and warmth acute pain and swelling of the left lower extremity COMPARISON: CT abdomen and pelvis 04/27/2019 TECHNIQUE: Multiple real-time sonographic images of the left lower extremity deep venous structures w ere obtained assessing grayscale appearance, color and spectral flow FINDINGS: Normal flow, compressibility, phasicity and augmentation of the left lower extremity deep venous stru ctures. Mild subcutaneous edema. IMPRESSION: No sonographic evidence of deep venous thrombosis. The above report was generated using voice recognition software. It may contain grammatical, syntax o r spelling errors. Electronically signed by: John Mckeon M.D. 04/28/2019 8:32 AM
[2019-04-28] MEDS: D5W AND NSS 1,000 ML IV SCH ×2 (08:44→09:46)
[2019-04-28 08:57] LABS: Hemoglobin 9.3 g/dL (14.0-18.0)
[2019-04-28 09:24] LABS: Folate (Folic Acid) 12.68 ng/ml (>5.38)
[2019-04-28] MEDS: NSS + 20MEQ KCL 20 MEQ/1,000 ML BAG IV SCH ×3 (09:28→19:40)
--- NOTE | 2019-04-28 13:31 | Anesthesiology Consultation ---
Date of Service April 28, 2019 Assessment & Plan Chart Review Chart Review: Acceptable Risk for Surgery and Patient NOT seen in Pre Admission Testing Consults Requested none History Surgery Operation Date: 04/28/19 17:00 Proposed Procedures p Esophagogastroduodenoscopy Dr Kristian Townsend Height/Weight Height: 5 ft 8 in Weight: 107.9 kg Allergies Allergy/AdvReac Type Severity Reaction Status Date / Time No Known Allergies Allergy Verified 04/28/19 13:25 Medications Home Medications Medication Instructions Recorded Confirmed Last Taken amlodipine 10 mg PO QAM 06/21/18 04/27/19 04/27/19 atorvastatin [Lipitor] 20 mg PO QAM 06/21/18 04/27/19 04/27/19 azathioprine 50 mg PO QID 06/21/18 04/27/19 04/27/19 bisoprolol fumarate 10 mg PO BID 06/21/18 04/27/19 04/27/19 lisinopril [Zestril] 40 mg PO QAM 06/21/18 04/27/19 04/27/19 prednisone 30 mg PO QAM 06/21/18 04/27/19 04/27/19 famotidine 20 mg PO QAM PRN 04/27/19 04/27/19 04/27/19 glipizide 10 mg PO HS 04/27/19 04/27/19 Unknown glipizide 20 mg PO QAM 04/27/19 04/27/19 04/26/19 Active Medications Generic Name Dose Route Start Last Admin Trade Name Freq PRN Reason Stop Dose Admin Pantoprazole Sodium 40 mg/ 100 mls @ 20 mls/hr 04/27/19 14:30 04/28/19 11:50 Dextrose IV 05/27/19 14:29 20 mls/hr Q5H CATRACHO Administration Cefepime HCl 2,000 mg/ Syringe 20 mls @ 5 mls/min 04/27/19 20:00 04/27/19 20:46 IV 05/07/19 19:59 5 mls/min Q24H CATRACHO Administration Protocol Potassium Chloride/Sodium Chloride 20 meq in 1,000 mls @ 100 mls/hr 04/28/19 09:00 04/28/19 09:59 Normal Saline W/20 Meq Kcl IV 05/28/19 08:59 100 mls/hr .Q10H CATRACHO Administration Insulin Aspart 0 units 04/27/19 21:00 04/28/19 11:39 Novolog Flexpen SC 05/27/19 20:59 Not Given Q6 CATRACHO NPO Date Last Intake of Fluids: 04/27/19 Time Last Intake of Fluids: 18:10 Date Last Intake of Solids: 04/27/19 Time Last Intake of Solids: 18:10 Past Medical History Medical History CKD (chronic kidney disease), stage III (Chronic) Depression (Chronic) Diabetes mellitus, type II (Chronic) GERD (gastroesophageal reflux disease) (Chronic) PILO on CPAP (Chronic) Sarcoidosis (Chronic) Past Family History Family History Other Heart disease Past Surgical History Surgical History H/O hernia repair (Chronic) Social History Smoking Status: Never smoker Hx Alcohol Use: Yes Hx Substance Use: No Physical Exam Vital Signs Last Vital Signs Temp 37.1 C 04/28/19 13:26 Pulse 77 04/28/19 13:26 Resp 20 04/28/19 13:26 BP 121/73 04/28/19 13:26 Pulse Ox 98 04/28/19 13:26 Testing Laboratory Results 04/28/19 08:46 04/28/19 01:34 PT 10.9 Seconds (9.0-12.0) 04/27/19 13:40 INR 1.1 (0.9-1.1) 04/27/19 13:40 APTT 20.2 Seconds (21.0-31.0) L 04/27/19 13:40 Hemoglobin A1c 7.2 % (4.5-5.6) H 04/28/19 01:34 Urine Color Yellow 04/27/19 14:10 Urine Appearance Clear (Clear) 04/27/19 14:10 Urine pH 5.0 (4.5-7.5) 04/27/19 14:10 Ur Specific [place] 1.015 (1.000-1.030) 04/27/19 14:10 Urine Protein 2+ (Negative) H 04/27/19 14:10 Urine Glucose (UA) Negative (Negative) 04/27/19 14:10 Urine Ketones Trace (Negative) H 04/27/19 14:10 Urine Nitrite Negative (Negative) 04/27/19 14:10 Ur Leukocyte Esterase Negative (Negative) 04/27/19 14:10 Urine WBC (Auto) 1-5 /hpf (0-5) 04/27/19 14:10 Urine RBC (Auto) 0-4 /hpf (0-4) 04/27/19 14:10 U Hyaline Cast (Auto) 10-30 /lpf (0-5) H 04/27/19 14:10 U Epithel Cells (Auto) 20-30 /lpf (0-5) H 04/27/19 14:10 Urine Bacteria (Auto) 1+ (Negative) H 04/27/19 14:10 Blood Type B Positive 04/27/19 14:57 Antibody Screen NEGATIVE 04/27/19 14:57 04/27/19 14:10 Urine Culture - Preliminary Urine,Clean Catch Pin-point growth present, reincubating. 04/28/19 04/28/19 11:33 06:04 POC Glucose 150 H 122 H
[2019-04-28] MEDS ORDERED: ATROPINE SULFATE 0.1 MG/ML 10ML SYR IV PRN (13:34)
[2019-04-28] MEDS ORDERED: ePHEDrine sulfate 50 MG/ML AMP IV PRN (13:34)
[2019-04-28] MEDS ORDERED: MIDAZOLAM HCL 1 MG/ML 2ML VIAL ONE (13:54)
--- NOTE | 2019-04-28 13:54 | History & Physical Bridge Note ---
Date of Service April 28, 2019 History & Physical Bridge Note I have examined the patient, reviewed the History & Physical and in the interval since the performance of the History & Physical I have noted the following changes of clinical significance: no changes noted
[2019-04-28] MEDS ORDERED: PROPOFOL IV EMULSION 10 MG/ML 20 ML VIAL IV ONE (13:56)
[2019-04-28] MEDS ORDERED: LIDOCAINE HCL 2% 2 ML VIAL/AMP(20MG/ML) INFIL ONE (13:56)
[2019-04-28] MEDS ORDERED: ONDANSETRON INJ 2 MG/ML 2 ML VIAL ONE (13:56)
--- NOTE | 2019-04-28 14:18 | GI REPORT ---
Patient Name: Isidro Neely Procedure Date: 04/28/2019 2:02 PM Date of : 1965 Admit Type: Inpatient Age: 53 Gender: Male Attending MD: Edi Townsend DO Procedure: Upper GI endoscopy Providers: Edi Townsend DO Referring MD: Vic Finley Md Indications: Melena Medicines: Monitored Anesthesia Care Complications: No immediate complications. Estimated blood loss: Minimal. Estimated Blood Loss: Estimated blood loss was minimal. Procedure: Pre-Anesthesia Assessment: - Prior to the procedure, a History and Physical was performed, and patient medications, allergies and sensitivities were reviewed. The patient's tolerance of previous anesthesia was reviewed. - The risks and benefits of the procedure and the sedation options and risks were discussed with the patient. All questions were answered and informed consent was obtained. - Patient identification and proposed procedure were verified prior to the procedure by the physician, the nurse and the machinist bench. The procedure was verified in the procedure room. - Pre-procedure physical examination revealed no contraindications to sedation. - ASA Grade Assessment: III - A patient with severe systemic disease. - After reviewing the risks and benefits, the patient was deemed in satisfactory condition to undergo the procedure. - The anesthesia plan was to use monitored anesthesia care (MAC). - Immediately prior to administration of medications, the patient was re-assessed for adequacy to receive sedatives. - The heart rate, respiratory rate, oxygen saturations, blood pressure, adequacy of pulmonary ventilation, and response to care were monitored throughout the procedure. - The physical status of the patient was re-assessed after the procedure. After obtaining informed consent, the endoscope was passed under direct vision. Throughout the procedure, the patient's blood pressure, pulse, and oxygen saturations were monitored continuously. The Endoscope was introduced through the mouth, and advanced to the third part of duodenum. The upper GI endoscopy was accomplished without difficulty. The patient tolerated the procedure well. Findings: LA Grade D (one or more mucosal breaks involving at least 75% of esophageal circumference) esophagitis with no bleeding was found in the lower third of the esophagus. Biopsies were taken with a cold forceps for histology. The pathology specimen was placed into Bottle A. Estimated blood loss was minimal. The entire examined stomach was normal. One non-bleeding healing duodenal ulcer with no stigmata of bleeding was found in the duodenal bulb. The lesion was 4 mm in largest dimension. Estimated blood loss: none. The second portion of the duodenum and third portion of the duodenum were normal. Impression: - LA Grade D esophagitis. Biopsied. - Normal stomach. - One non-bleeding duodenal ulcer with no stigmata of bleeding. - Normal second portion of the duodenum and third portion of the duodenum. Recommendation: - [facility] care. - Advance diet as tolerated today. - Use Protonix (pantoprazole) 40 mg PO BID for 6 weeks then 40 mg per day thereafter. - Carafate slurry 4 times daily for 2 weeks. - Consider use of an Iron supplement for 8 weeks. - Repeat upper endoscopy in 3 months for surveillance. Edi Townsend D.O. Edi Townsend, 04/28/2019 2:18:20 PM This report has been signed electronically. Note Initiated On: 04/28/2019 2:02 PM Number of Addenda: 0 I attest to the content of the Intraoperative Record and orders documented therein, exceptions below {[id number]}
--- NOTE | 2019-04-28 14:19 | Communication Note ---
Date of Service: April 28, 2019 The patient underwent upper endoscopy today. He does have evidence of a healing duodenal ulcer without any recent stigmata of bleeding. He also has severe erosive esophagitis which is likely source of his melena. Recommendations Protonix 40 mg twice daily for 6 weeks then 1 time daily thereafter Carafate slurry 4 times daily for 2 weeks Consider use of an iron supplement Repeat upper endoscopy in 3 months If patient doing well Christina may consider discharge
[2019-04-28 15:09] LABS: Hematocrit (blood only) 26.4 % (42-52); Hemoglobin 8.8 g/dL (14.0-18.0)
--- NOTE | 2019-04-28 15:31 | Hospitalist Progress Note ---
Date of Service April 28, 2019 Assessment & Plan (1) Acute upper GI bleed: (2) Symptomatic anemia: Patient is a 53 yr male with H/O Sarcoidosis, PILO on CPAP, CKD IIIb, DM II, GERD, depression presents with right flank pain and black stool x5 days was found to have symptomatic anemia and GI bleed. Acute Upper GI bleed/Melena Symptomatic Anemia Hb: 7.6 on presentation Baseline Hb around 13 in Jun 2018 04/28/19 S/P EGD:LA Grade D esophagitis. One non-bleeding duodenal ulcer with no stigmata of bleeding. On Chronic Prednisone use for sarcoidosis S/P 1 unit PRBCs Hb 8.8 today Continue Protonix drip Plan to transition to Protonix 40mg BID Started on Carafate-- need to continue for 2 weeks Liquid diet today Continue IV fluids Monitor H&H and transfuse PRBCs as needed Appreciate GI Input Needs repeat EGD in 3 months Hold Prednisone for now (3) Cellulitis of left lower extremity: H/O recent fungal infection, treated with antifungal cream Erythema improving Continue cefepime Day #2 Venous Doppler: No sonographic evidence of deep venous thrombosis. (4) Sarcoidosis: Continue azathioprine Hold prednisone for now due to esophagitis Follows with Dr. Dang in [place] (5) CKD (chronic kidney disease), stage III: Creatinine at baseline Monitor renal function Cr: 1.86 today (6) Diabetes mellitus, type II: Hb A1C: 7.2 Hold home agents SSI while in-patient Monitor BSG (7) HTN (hypertension): BP stable Continue amlodipine, bisoprolol (8) PILO on CPAP: CPAP HS Abnormal UA R/O UTI Urine Cx:pending On Cefepime for cellulitis DVT Px: SCDs Re: GI bleed Code status: FULL PCP: Dr. Dewayne Ruiz Disposition: Expect to discharge home when medically stable Subjective Patient is seen and examined at bedside Had EGD today No acute bleeding issues Complaints of back pain and mild left leg pain Had PRBCs overnight on Protonix drip Denies any chest pain, SOB, dizziness, nausea, abd pain Offers no other complaints Review of Systems Review of Systems: All systems reviewed & are unremarkable except as noted in HPI & below Physical Exam Physical Exam: Physical Exam: Vitals signs as noted above General Appearance:Obese, no apparent distress Head: normocephalic, Atraumatic Eyes: normal inspection, EOMI Neck: supple, Trachea midline Respiratory/Chest: Normal breath sounds, CTA Cardiovascular: S1, S2, No murmur Abdomen/GI:Soft, Non tender, Bowel sounds present Extremities/Musculoskelatal:normal inspection, B/L LE edema, Left leg erythematous Neurologic/Psych:AAOX3, grossly no focal neurological deficits Skin: normal color, warm Results & Data Vital Signs (Past 12 Hours) Vital Signs Temp Pulse Resp BP Pulse Ox 04/28/19 14:49 75 20 129/61 95 04/28/19 14:35 76 20 101/50 L 95 04/28/19 14:20 84 20 93/39 L 95 04/28/19 13:26 37.1 C 77 20 121/73 98 04/28/19 11:13 37.1 C 71 18 120/67 98 04/28/19 07:40 37.3 C 79 18 119/75 98 Laboratory Results Short CBC 04/27/19 04/28/19 04/28/19 Range/Units 19:45 01:34 08:46 WBC 7.03 (4.8-10.8) K/uL Hgb 7.6 L 7.3 L 9.3 L (14.0-18.0) g/dL Hct 22.8 L 21.5 L 28.0 L (42-52) % Plt Count 282 (130-400) K/uL 04/28/19 Range/Units 15:01 WBC (4.8-10.8) K/uL Hgb 8.8 L (14.0-18.0) g/dL Hct 26.4 L (42-52) % Plt Count (130-400) K/uL BMP 04/28/19 01:34 Sodium 141 Potassium 3.3 L Chloride 111 H Carbon Dioxide 22 BUN 36 H Creatinine 1.86 H Glucose 110 H Calcium 9.2 Liver Function 04/28/19 Range/Units 01:34 Total Bilirubin 0.4 (0.2-1) mg/dl AST 13 L (15-37) U/L ALT 34 (12-78) U/L Alkaline Phosphatase 80 (45-117) U/L Albumin 2.4 L (3.4-5.0) gm/dl
--- NOTE | 2019-04-28 16:39 | Anesthesiology Progress Note ---
Date of Service April 28, 2019 Anesthesia Post Procedure Vital Signs Vital Signs: Temp Pulse Pulse Pulse Resp BP BP 04/28/19 15:34 36.8 C 80 18 127/81 04/28/19 14:49 75 20 129/61 04/28/19 14:35 76 20 101/50 L 04/28/19 14:20 84 20 93/39 L 04/28/19 13:26 37.1 C 77 20 121/73 04/28/19 11:13 37.1 C 71 18 120/67 04/28/19 07:40 37.3 C 79 18 119/75 04/28/19 00:00 36.8 C 65 18 100/62 04/27/19 20:28 77 04/27/19 19:45 36.8 C 62 18 107/67 04/27/19 18:21 36.9 C 56 L 54 L 16 114/67 04/27/19 17:30 61 15 131/74 04/27/19 17:00 65 10 L 137/72 Pulse Ox Pulse Ox 04/28/19 15:34 98 04/28/19 14:49 95 04/28/19 14:35 95 04/28/19 14:20 95 04/28/19 13:26 98 04/28/19 11:13 98 04/28/19 07:40 98 04/28/19 00:00 04/27/19 20:28 04/27/19 19:45 100 04/27/19 18:21 99 99 04/27/19 17:30 99 04/27/19 17:00 94 Pain Intensity Right Flank: Pain Intensity: 5 Transfer of Care Handoff Completed per policy Notes Mental Status: alert / awake / arousable Patient Amnestic to Procedure: Yes Nausea / Vomiting: adequately controlled Pain: adequately controlled Airway Patency, RR, SpO2: stable & adequate BP & HR: stable & adequate Hydration State: stable & adequate Anesthetic Complications: no major complications apparent and Pt Satisfied with anesthetic care
[2019-04-28] MEDS: SUCRALFATE 1 GM TAB PO SCH ×2 (17:44→21:01)
[2019-04-28] MEDS: azaTHIOprine 50 MG TAB PO SCH ×2 (17:44→21:00)
[2019-04-28] MEDS: CEFEPIME 2,000 MG in SYRINGE 7.5 ML IV SCH (19:40)
[2019-04-28 20:59] LABS: Hematocrit (blood only) 26.3 % (42-52); Hemoglobin 8.9 g/dL (14.0-18.0)
[2019-04-28] MEDS: BISOPROLOL FUMARATE PO SCH (21:02)
[2019-04-29] MEDS: PANTOprazole 40 MG in DEXTROSE 5% 100 ML IV SCH ×3 (00:25→10:23)
[2019-04-29 06:44] LABS: Hematocrit (blood only) 23.8 % (42-52); Mean Corpuscular Hemoglobin 34.9 pg (25-34); Mean Corpuscular Hgb Conc 33.6 g/dL (32-36); Mean Corpuscular Volume 103.9 fL (80-100); Mean Platelet Volume 8.3 fL (7.4-10.4); Nucleated RBC # (auto) 0.05 K/uL (0-0); Nucleated RBC % (auto) 0.7 %; Platelet Count 241 K/uL (130-400); RDW Coefficient of Variation 17.2 % (11.5-14.5); RDW Standard Deviation 63.7 fL (36.4-46.3); Red Blood Count 2.29 M/uL (4.7-6.1); White Blood Count 6.66 K/uL (4.8-10.8)
[2019-04-29 07:25] LABS: Albumin Globulin Ratio 0.6 (0.9-2); Albumin Level 2.2 gm/dl (3.4-5.0); BUN Creatinine Ratio 13.1 (10-20); Bilirubin,Total 0.7 mg/dl (0.2-1); Calcium 9.2 mg/dl (8.5-10.1); Creatinine Clr Calc Pharmacy 53.6 ml/min; Est GFR (African American) 45.9; Est GFR (Non-African American) 39.6; Globulin 3.5 gm/dl (2.5-4.0); Potassium 3.8 mmol/L (3.5-5.1); Total Protein 5.7 gm/dl (6.4-8.2)
[2019-04-29] MEDS: azaTHIOprine 50 MG TAB PO SCH ×4 (07:41→20:08)
[2019-04-29] MEDS: SUCRALFATE 1 GM TAB PO SCH ×4 (07:41→20:09)
[2019-04-29] MEDS: BISOPROLOL FUMARATE PO SCH ×2 (07:41→22:53)
[2019-04-29] MEDS: INSULIN ASPART 100 UNITS/ML 3 ML PEN SC SCH ×4 (08:13→20:23)
[2019-04-29] MEDS ORDERED: predniSONE 10 MG TABLET PO SCH (09:00)
--- NOTE | 2019-04-29 09:58 | Gastroenterology Progress Note ---
Date of Service April 29, 2019 Assessment & Plan (1) Symptomatic anemia: 53 year old male s/p EGD w/ duodenal ulcer without any recent stigmata of bleeding and severe erosive esophagitis which is likely source of his melena. Protonix 40 mg twice daily for 6 weeks then 1 time daily thereafter Carafate slurry 4 times daily for 2 weeks Consider use of an iron supplement Repeat upper endoscopy in 3 months Will sign off. Please call with any acute changes, questions, concerns Supervising Physician Co-Signing Physician Notes I saw and evaluated the patient. The patient does have severe esophagitis. I would recommend Protonix 40 mg twice daily for 6 weeks then 1 time daily thereafter. I would also suggest use of care 4 times daily for the next 2 weeks. Please advance the patient's diet as tolerated and call us with any additional questions or concerns. Subjective PT was seen and evaluated, chart reviewed S/P EGD No concerns this AM no pain No nausea, vomiting No black/bloody stools/emesis Review of Systems Constitutional: no chills and no fatigue Respiratory: no cough and no dyspnea Cardiovascular: no chest pain and no dyspnea on exertion Gastrointestinal: no abdominal pain, no coffee ground emesis, no hematemesis, no blood in stools and no melena Physical Exam Constitutional: no acute distress Respiratory: normal respiratory effort Gastrointestinal (Abdomen): Inspection/Auscultation: normal bowel sounds Percussion/Palpation: abdomen soft Results & Data Vital Signs (Past 12 Hours) Vital Signs Temp Pulse Pulse Resp BP BP Pulse Ox 04/29/19 07:46 37.5 C 74 20 110/69 97 04/29/19 07:00 73 04/29/19 04:00 37.1 C 90 20 125/74 98 04/29/19 00:00 73 04/28/19 23:10 37.5 C 78 18 137/78 97
--- NOTE | 2019-04-29 10:12 | Anesthesiology Progress Note ---
Date of Service April 29, 2019 Anesthesia Post Procedure Vital Signs Vital Signs: Temp Pulse Pulse Resp BP BP Pulse Ox 04/29/19 07:46 37.5 C 74 20 110/69 97 04/29/19 07:00 73 04/29/19 04:00 37.1 C 90 20 125/74 98 04/29/19 00:00 73 04/28/19 23:10 37.5 C 78 18 137/78 97 04/28/19 19:37 37.4 C 78 19 118/69 97 04/28/19 16:00 93 H 04/28/19 15:34 36.8 C 80 18 127/81 98 04/28/19 14:49 75 20 129/61 95 04/28/19 14:35 76 20 101/50 L 95 04/28/19 14:20 84 20 93/39 L 95 04/28/19 13:26 37.1 C 77 20 121/73 98 04/28/19 11:13 37.1 C 71 18 120/67 98 Pain Intensity Right Flank: Pain Intensity: 0 Right Hip: Pain Intensity: 4 Notes Mental Status: alert / awake / arousable Patient Amnestic to Procedure: Yes Nausea / Vomiting: adequately controlled Pain: improving with treatment Airway Patency, RR, SpO2: stable & adequate BP & HR: stable & adequate Hydration State: stable & adequate Anesthetic Complications: no major complications apparent
[2019-04-29] MEDS: NSS + 20MEQ KCL 20 MEQ/1,000 ML BAG IV SCH (12:02)
[2019-04-29] MEDS ORDERED: ACETAMINOPHEN 325 MG TAB PO PRN (19:45)
[2019-04-29] MEDS: CEFEPIME 2,000 MG in SYRINGE 7.5 ML IV SCH (20:04)
[2019-04-29] MEDS: PANTOprazole 40 MG TAB PO SCH (20:09)
--- NOTE | 2019-04-29 22:13 | Hospitalist Progress Note ---
Date of Service April 29, 2019 Assessment & Plan (1) Acute upper GI bleed: Presented with melena. On prednisone for sarcoidosis. No antiplatelet drugs, anticoagulants, or nonsteroidal anti-inflammatory drugs. Hemoglobin at time of admission was 8.2. Started on pantoprazole infusion. GI consulted. EGD demonstrated grade D esophagitis and a nonbleeding ulcer in the duodenum. PPI twice daily for 6 weeks then daily thereafter and Carafate slurry x2 weeks recommended. (2) Symptomatic anemia: Presented with upper GI bleed secondary to severe esophagitis. Hemoglobin at time of admission was 8.2. Acute blood loss anemia secondary to upper GI bleed. Hemoglobin fell as low as 7.3. Received 1 unit of packed RBCs on 04/28. Hemoglobin yesterday was 9.3, today 8.0. Continue to monitor H&H. (3) Cellulitis of left lower extremity: Improving. Continue cefepime. (4) HTN (hypertension): Lisinopril on hold due to GI bleed. Follow and titrate therapy. (5) Sarcoidosis: Managed with prednisone and azathioprine. Prednisone on hold because of upper GI bleed; try resuming soon. Consider holding azathioprine due to cellulitis. (6) PILO on CPAP: Continue CPAP. (7) CKD (chronic kidney disease), stage III: History of CKD 3. Creatinine at time of admission was 2.02 which is comparable to creatinine of 2.190 06/21/2018. Creatinine today = 1.89. Follow. (8) Diabetes mellitus, type II: Diabetes mellitus type 2 managed with glipizide. Hemoglobin A1c 7.2. Hold glipizide during hospital stay. Receiving insulin coverage as necessary. Fasting blood sugar today = 165. (9) DVT prophylaxis: No anticoagulants due to GI bleed. SCDs. Ambulate. (10) Discharge planning issues: Anticipated discharge to home. Primary care follow-up with Dr. Ruiz. Follow-up for sarcoidosis with Pulmonary Medicine. Subjective Recheck for GI bleed. Patient seen in their room around 1320. Feels better. No abdominal pain, nausea, vomiting. No melena or hematochezia. Ambulating in room. Review of Systems: Constitutional- no fever. Cardiac- no chest pain. Pulmonary- no cough or SOB. GI- as noted above. - no urinary symptoms. Otherwise, as noted above. Physical Exam Constitutional: no acute distress Respiratory: no respiratory distress Auscultation: lungs clear to auscultation bilaterally Cardiovascular: Rate/Rhythm: regular rate and regular rhythm Heart Sounds: no gallop and no cardiac rub Vessels: no JVD Extremities: + edema (1+ LLE with erythema); no calf tenderness Gastrointestinal (Abdomen): normal bowel sounds, soft, nontender, no hepatosplenomegaly Skin: no rashes, warm and dry Psychiatric: Orientation: alert and oriented x 3 Results & Data Vital Signs (Past 12 Hours) Vital Signs Temp Pulse Resp BP Pulse Ox 04/29/19 19:29 38.4 C H 79 16 115/72 97 04/29/19 16:08 37.6 C H 75 18 111/65 98 04/29/19 11:59 37.0 C 74 18 114/68 96 Laboratory Results 04/29/19 06:33 04/29/19 06:33
[2019-04-30 06:39] LABS: Hemoglobin 8.1 g/dL (14.0-18.0); Mean Corpuscular Hemoglobin 34.6 pg (25-34); Mean Corpuscular Hgb Conc 33.8 g/dL (32-36); Mean Corpuscular Volume 102.6 fL (80-100); Mean Platelet Volume 8.5 fL (7.4-10.4); Platelet Count 266 K/uL (130-400); RDW Coefficient of Variation 16.9 % (11.5-14.5); RDW Standard Deviation 62.4 fL (36.4-46.3); Red Blood Count 2.34 M/uL (4.7-6.1); White Blood Count 6.51 K/uL (4.8-10.8)
[2019-04-30 07:14] LABS: BUN Creatinine Ratio 10.7 (10-20); Calcium 9.4 mg/dl (8.5-10.1); Creatinine Clr Calc Pharmacy 53.9 ml/min; Est GFR (African American) 46.2; Est GFR (Non-African American) 39.9; Potassium 3.4 mmol/L (3.5-5.1)
[2019-04-30] MEDS: SUCRALFATE 1 GM TAB PO SCH ×4 (09:04→21:42)
[2019-04-30] MEDS: PANTOprazole 40 MG TAB PO SCH ×2 (09:04→21:42)
[2019-04-30] MEDS: BISOPROLOL FUMARATE PO SCH ×2 (09:04→21:42)
[2019-04-30] MEDS: INSULIN ASPART 100 UNITS/ML 3 ML PEN SC SCH ×4 (09:05→21:53)
[2019-04-30] MEDS: predniSONE 10 MG TABLET PO SCH (10:26)
--- NOTE | 2019-04-30 19:43 | Hospitalist Progress Note ---
Date of Service April 30, 2019 Assessment & Plan (1) Acute upper GI bleed: Presented with melena. On prednisone for sarcoidosis. No antiplatelet drugs, anticoagulants, or nonsteroidal anti-inflammatory drugs. Hemoglobin at time of admission was 8.2. Started on pantoprazole infusion. GI consulted. EGD demonstrated grade D erosive esophagitis and a nonbleeding ulcer in the duodenum. PPI twice daily for 6 weeks then daily thereafter and Carafate slurry x2 weeks recommended. (2) Symptomatic anemia: Presented with upper GI bleed secondary to severe esophagitis. Hemoglobin at time of admission was 8.2. Acute blood loss anemia secondary to upper GI bleed. Hemoglobin fell as low as 7.3. Received 1 unit of packed RBCs on 04/28. Hemoglobin today = 8.1 (stable over last 24 hrs). Continue PPI and sucralfate. Continue to monitor H&H. (3) Cellulitis of left lower extremity: Improving, but febrile last evening. Continue cefepime. (4) HTN (hypertension): Lisinopril on hold due to GI bleed. Follow and titrate therapy. (5) Sarcoidosis: Managed with prednisone and azathioprine. Continue prednisone. Holding azathioprine due to cellulitis. (6) PILO on CPAP: Continue CPAP. (7) CKD (chronic kidney disease), stage III: History of CKD 3. Creatinine at time of admission was 2.02 which is comparable to creatinine of 2. 190 06/21/2018. Creatinine today = 1.88. Follow. (8) Diabetes mellitus, type II: Diabetes mellitus type 2 managed with glipizide. Hemoglobin A1c 7.2. Hold glipizide during hospital stay. Receiving insulin coverage as necessary. Fasting blood sugar today = 187. (9) DVT prophylaxis: No anticoagulants due to GI bleed. SCDs. Ambulate. (10) Discharge planning issues: Anticipated discharge to home. Primary care follow-up with Dr. Ruiz. Follow-up for sarcoidosis with Pulmonary Medicine. Subjective Recheck for GI bleed and other problems Patient seen in their room around 1400. Febrile last evening. No abdominal pain, nausea, vomiting. No melena or hematochezia. Review of Systems: Constitutional- + fever. Cardiac- no chest pain. Pulmonary- no cough or SOB. GI- as noted above. - no urinary symptoms. Otherwise, as noted above. Physical Exam Constitutional: no acute distress Respiratory: no respiratory distress Auscultation: lungs clear to auscultation bilaterally Cardiovascular: Rate/Rhythm: regular rate and regular rhythm Heart Sounds: no gallop and no cardiac rub Vessels: no JVD Extremities: + edema (1+ LLE with resolving erythema); no calf tenderness Gastrointestinal (Abdomen): normal bowel sounds, soft, nontender, no hepatosplenomegaly Skin: no rashes, warm and dry Psychiatric: Orientation: alert and oriented x 3 Results & Data Vital Signs (Past 12 Hours) Vital Signs Temp Pulse Pulse Resp BP Pulse Ox 04/30/19 15:21 36.9 C 75 20 165/77 H 96 04/30/19 15:07 69 04/30/19 11:49 37.0 C 68 24 129/77 99 04/30/19 08:12 36.8 C 66 21 134/76 99 04/30/19 08:00 64 Laboratory Results 04/30/19 06:29 04/30/19 06:29
[2019-04-30] MEDS: CEFEPIME 2,000 MG in SYRINGE 7.5 ML IV SCH (21:40)
[2019-04-30] MEDS: INSULIN GLARGINE SOLOSTAR 100 UNITS/ML 3 ML PEN SC SCH (21:52)
[2019-05-01 05:17] LABS: Hematocrit (blood only) 23.9 % (42-52); Hemoglobin 8.1 g/dL (14.0-18.0); Mean Corpuscular Hemoglobin 34.5 pg (25-34); Mean Corpuscular Hgb Conc 33.9 g/dL (32-36); Mean Corpuscular Volume 101.7 fL (80-100); Mean Platelet Volume 8.6 fL (7.4-10.4); Platelet Count 264 K/uL (130-400); RDW Coefficient of Variation 16.3 % (11.5-14.5); RDW Standard Deviation 60.1 fL (36.4-46.3); Red Blood Count 2.35 M/uL (4.7-6.1); White Blood Count 6.59 K/uL (4.8-10.8)
[2019-05-01 05:48] LABS: BUN Creatinine Ratio 10.7 (10-20); Calcium 9.5 mg/dl (8.5-10.1); Creatinine Clr Calc Pharmacy 50.1 ml/min; Est GFR (African American) 42.4; Est GFR (Non-African American) 36.6; Potassium 3.6 mmol/L (3.5-5.1)
[2019-05-01] MEDS: PANTOprazole 40 MG TAB PO SCH (08:28)
[2019-05-01] MEDS: SUCRALFATE 1 GM TAB PO SCH ×2 (08:28→13:27)
[2019-05-01] MEDS: BISOPROLOL FUMARATE PO SCH (08:28)
[2019-05-01] MEDS: predniSONE 10 MG TABLET PO SCH (08:28)
[2019-05-01] MEDS: INSULIN GLARGINE SOLOSTAR 100 UNITS/ML 3 ML PEN SC SCH (08:31)
[2019-05-01] MEDS: INSULIN ASPART 100 UNITS/ML 3 ML PEN SC SCH ×2 (08:32→13:22)
--- NOTE | 2019-05-01 14:51 | Hospitalist Progress Note ---
Date of Service May 01, 2019 Assessment & Plan (1) Acute upper GI bleed: Presented with melena. On prednisone for sarcoidosis. No antiplatelet drugs, anticoagulants, or nonsteroidal anti-inflammatory drugs. Hemoglobin at time of admission was 8.2. Started on pantoprazole infusion. GI consulted. EGD demonstrated grade D erosive esophagitis and a nonbleeding ulcer in the duodenum. PPI twice daily for 6 weeks then daily thereafter and Carafate slurry x2 weeks recommended. (2) Symptomatic anemia: Presented with upper GI bleed secondary to severe esophagitis. Hemoglobin at time of admission was 8.2. Acute blood loss anemia secondary to upper GI bleed. Hemoglobin fell as low as 7.3. Received 1 unit of packed RBCs on 04/28. Hemoglobin today = 8.1 (stable over last 48 hrs). GI recommends: PPI BID x 6 wks, then daily thereafter. sucralfate slurry QIC x 2 wks ferrous sulfate Continue to monitor H&H. (3) Cellulitis of left lower extremity: Treated with cefepime with improvement. Afebrile. Discharge on doxycycline to complete course of therapy. (4) HTN (hypertension): Lisinopril and amlodipine held due to GI bleed. Restart meds slowly. Follow and titrate therapy. (5) Sarcoidosis: Managed with prednisone and azathioprine. Continue prednisone. Held azathioprine due to cellulitis. Now afebrile; should be OK to resume Rx. (6) PILO on CPAP: Continue CPAP. (7) CKD (chronic kidney disease), stage III: History of CKD 3 followed by Nephrology. Creatinine at time of admission was 2.02 which is comparable to creatinine of 2.190 06/21/2018. Creatinine today = 2.02. Follow. (8) Diabetes mellitus, type II: Diabetes mellitus type 2 managed with glipizide. Hemoglobin A1c 7.2. Hold glipizide during hospital stay. Receiving insulin coverage as necessary. Fasting blood sugar today = 175, but blood sugar at 12:20 was 321. Patient indicates that blood sugars usually run in 200's. Resume glipizide at time of discharge. Ongoing management per PCP. (9) DVT prophylaxis: No anticoagulants due to GI bleed. SCDs. Ambulate. (10) Discharge planning issues: Discharge to home. Primary care follow-up with Dr. Ruiz in [place]. Follow-up for sarcoidosis with Pulmonary Medicine. Follow-up for CKD with Nephrology. Subjective Recheck for GI bleed and other problems Patient seen in their room around 1100. No fever last evening. No abdominal pain, nausea, vomiting. Passed stools for the first time since EGD- formed, dark. Review of Systems: Constitutional- no fever. Cardiac- no chest pain. Pulmonary- chronic cough, unchanged. GI- as noted above. - no urinary symptoms. Otherwise, as noted above. Physical Exam Constitutional: no acute distress Respiratory: no respiratory distress Auscultation: lungs clear to auscultation bilaterally Cardiovascular: Rate/Rhythm: regular rate and regular rhythm Heart Sounds: no gallop and no cardiac rub Vessels: no JVD Extremities: + edema (1+ LLE with resolving erythema); no calf tenderness Gastrointestinal (Abdomen): normal bowel sounds, soft, nontender, no hepatosplenomegaly Skin: no rashes, warm and dry Psychiatric: Orientation: alert and oriented x 3 Results & Data Vital Signs (Past 12 Hours) Vital Signs Temp Pulse Resp BP Pulse Ox 05/01/19 07:45 36.5 C 63 16 120/74 97 Laboratory Results 05/01/19 05:05 05/01/19 05:05
--- NOTE | 2019-05-01 15:32 | Discharge Summary ---
Date of Service Date of Admission: 04/27/19 Date of Discharge: 05/01/19 Admission HPI Per Admitting Provider This is a 53yo M with a PMH of sarcoidosis, PILO on CPAP, CKD IIIb, DM II, GERD, depression and other medical problems listed below who presents with right flank pain and black stool x5 days. Patient states he has had aching right-sided flank pain for 3 days as well as 5 days of black tarry semi-formed stool with 1- 2 episodes daily. Patient also with bright red blood on toilet paper when wiping. Endorses lightheadedness and dizziness but no visual changes, chest pain or SOB. Denies any fever, chills, nausea, vomiting, abdominal pain, dysuria or hematuria. Denies history of GI bleeds in the past. Did have colonoscopy and EGD a few years ago and believes they were normal but is not positive. Does not take any aspirin or NSAIDs. Is on chronic prednisone 30 mg daily for the past 5 years for sarcoidosis, for which he follows with Dr. Dang (nephro in [place]). Currently not experiencing flank pain. Has some redness and warmth on LLE that patient has noticed over the past week. Was treated for a fungal infection with antifungal cream by PCP. Non-tender to palpation. In ED, patient is hemodynamically stable. Hgb of 8.2 (most recent outpatient hgb from 03/11 of 10.7). BUN of 44 and Cr of 2.02 (baseline Cr ~ 2). Principal Diagnosis upper GI bleed secondary to severe erosive esophagitis healing duodenal ulcer acute blood loss anemia cellulitis left lower extremity Discharge Data Allergies Allergy/AdvReac Type Severity Reaction Status Date / Time No Known Allergies Allergy Verified 04/28/19 13:25 Consultations 04/27/19 15:31 ED Decision to Admit Stat 04/27/19 18:21 Consult Gastroenterology Routine Procedures Performed Operation Date: 04/28/19 17:00 Actual Procedures p EGD Biopsy Cytology - Edi Townsend Ordered Studies 04/27/19 13:48 CT abd pelvis wo con Stat 04/28/19 06:00 US venous doppler LE LT Routine Hospital Course (1) Acute upper GI bleed: Presented with melena. On prednisone for sarcoidosis; no antiplatelet drugs, anticoagulants, or nonsteroidal anti-inflammatory drugs. Hemoglobin at time of admission was 8.2. Started on pantoprazole infusion. GI consulted. EGD demonstrated grade D erosive esophagitis and a nonbleeding ulcer in the duodenum. PPI twice daily for 6 weeks then daily thereafter and sucralfate slurry x2 weeks recommended. (2) Symptomatic anemia: Presented with upper GI bleed secondary to severe esophagitis. Hemoglobin at time of admission was 8.2. Acute blood loss anemia secondary to upper GI bleed. Hemoglobin fell as low as 7.3. Received 1 unit of packed RBCs on 04/28. Hemoglobin day of discharge = 8.1 (stable over last 48 hrs). GI recommended: PPI BID x 6 wks, then daily thereafter. sucralfate slurry QID x 2 wks ferrous sulfate Continue to monitor H&H. (3) Cellulitis of left lower extremity: Treated with cefepime with improvement. Afebrile. Discharge on cephalexin to complete course of therapy. (4) HTN (hypertension): Lisinopril and amlodipine held due to GI bleed. Restart meds slowly: lisinopril 10 mg daily x 3 days, 30 mg daily x 3 days, then back to 40 mg daily hold amlodipine until BP check in clinic Follow and titrate therapy. (5) Sarcoidosis: Managed with prednisone and azathioprine. Continue prednisone. Held azathioprine due to cellulitis. Now afebrile; should be OK to resume Rx. (6) PILO on CPAP: Continue CPAP. (7) CKD (chronic kidney disease), stage III: History of CKD 3 followed by Nephrology. Creatinine at time of admission was 2.02 which is comparable to creatinine of 2.190 06/21/2018. Creatinine day of discharge = 2.02. Follow. (8) Diabetes mellitus, type II: Diabetes mellitus type 2 managed with glipizide. Hemoglobin A1c 7.2. Hold glipizide during hospital stay. Receiving insulin coverage as necessary. Fasting blood sugar today = 175, but blood sugar at 12:20 was 321. Patient indicates that blood sugars usually run in 200's. Resume glipizide at time of discharge. Ongoing management per PCP. (9) DVT prophylaxis: No anticoagulants due to GI bleed. SCDs. Ambulate. (10) Discharge planning issues: Discharged to home. Primary care follow-up with Dr. Ruiz in [place]. Follow-up for sarcoidosis with Pulmonary Medicine. Follow-up for CKD with Nephrology. Total Time Total Time Spent Total Time Spent (In Minutes): 45 Discharge Plan Discharge Items Patient Disposition: Home - Self-Care Reason For Visit: gastrointestinal bleeding Discharge Diagnosis: severe esophagitis (inflammation of esophagus) healing ulcer in small intestine anemia cellulitis of left leg Condition on Discharge: Good Activity: As commented below Activity Comment: gradually increase activity Non-emergency contact: Primary Care Provider, Hospitalist, Clinical Laboratory Technician and Singing Teacher Call non-emergency contact if: you have any medication questions, your symptoms worsen and your temperature is above 101 Follow-up/Referrals: Dewayne Ruiz MD [Primary Care Provider] - (Please call for an appointment for next week.) Diet: Carb Consistent or DM2 and Heart Healthy Addtl Attending Provider Instructions: Upper endoscopy showed severe esophagitis (inflammation of esophagus). This was probably where you were bleeding form. They also saw a healing ulcer in the first part of the small intestine. Take medications for stomach & esophagus as follows: omeprazole (Prilosec) 40 mg twice a day for 6 weeks, then once a day thereafter sucralfate (Carafate) 10 ml (2 tsp) after meals and bedtime for 2 weeks. Your hemoglobin level was 8.1 on the day of discharge. Take ferrous sulfate (iron pill) daily with lunch. Take it with ascorbic acid (vitamin C) so that more is absorbed into your body. Have Dr. Ruiz recheck your blood count in his office. Your blood sugars were running high at times. Hemoglobin A1C was 7.2. Resume your glipizide. Be careful with your diet. Discuss further management of your diabetes with Dr. Ruiz. You have cellulitis (skin infection) of your left leg. Take cephalexin (Keflex) 4 times a day until gone. Your blood pressure medicines amlodipine and lisinopril were held because of blood loss. Restart lisinopril 10 mg (1/4 pill) for 3 days, 20 mg (1/2 pill) for 3 days, then back to 40 mg daily. Hold amlodipine (Norvasc) until you see Dr. Ruiz and have your blood pressure rechecked. Your creatinine level was 2.02. CT scan showed kidney stones and gall stones. Seek medical attention if you have abdominal or back pain, nausea, vomiting, blood in urine, fever. OTHER INSTRUCTIONS: Seek medical attention if you have: * temperature above 101 * chest pain or trouble breathing * abdominal pain, nausea, vomiting * diarrhea, dark stools or bloody stools * any unanswered questions or concerns Call 911 if symptoms are severe. Please take good care of yourself. Call if you have any questions or problems. You can reach a [facility] hospitalist on duty at [facility] 24 hours a day by calling [phone]. My cell # is [phone]. Pending Studies at Discharge: No Stand-Alone Forms: My [facility], Smoking Cessation Medications and DC Order Prescriptions: New omeprazole 40 mg capsule,delayed release(DR/EC) 40 mg PO BID Qty: 90 RF: 0 omeprazole 40 mg capsule,delayed release(DR/EC) 40 mg PO DAILY Qty: 30 RF: 5 sucralfate 100 mg/mL suspension 10 ml PO ACHS Qty: 840 RF: 0 ferrous sulfate 325 mg (65 mg iron) tablet 325 mg PO DAILY Qty: 30 RF: 1 ascorbic acid (vitamin C) 500 mg capsule 500 mg PO DAILY Qty: 30 RF: 1 cephalexin 500 mg capsule 500 mg PO QID 7 Days Qty: 28 RF: 0 Continued prednisone 10 mg Tablet 30 mg PO QAM RF: 0 atorvastatin [Lipitor] 20 mg Tablet 20 mg PO QAM RF: 0 azathioprine 50 mg Tablet 50 mg PO QID RF: 0 bisoprolol fumarate 10 mg Tablet 10 mg PO BID RF: 0 amlodipine 10 mg Tablet 10 mg PO QAM RF: 0 lisinopril [Zestril] 40 mg Tablet 40 mg PO QAM RF: 0 glipizide 10 mg tablet extended release 24hr 20 mg PO QAM RF: 0 glipizide 10 mg Tablet Extended Release 24hr 10 mg PO HS RF: 0 Discontinued famotidine 20 mg tablet 20 mg PO QAM PRN (Reason: Acid Reflux) RF: 0 Discharge Orders: Discharge Order (Routine); Ordered 05/01/19 Ordered By: Rebel Pastor Admission Data Admit Date/Time: 04/27/19 16:02 Attending Provider: Rebel Pastor Admit Provider: Jag Fortune Primary Care Provider: Dewayne Ruiz Other Providers: Vic Finley ; Jag Fortune ; Edi Townsend
--- NOTE | 2019-05-01 15:55 | Communication Note ---
Date of Service: May 01, [address] Ruiz given update by phone.
== END 2019-05-01 17:17 | disposition home or self-care (01) | DRG 392 ==
LOC: ED 12:05 → SUATTDRO 16:02 → 2S 16:02 → 3N 04-30 14:03

== ENCOUNTER 2019-10-10 15:27 | Inpatient (IN) ==
[2019-10-10] MEDS ORDERED: ACETAMINOPHEN 1,000 MG/100 ML VIAL IV STA (16:11)
[2019-10-10] MEDS ORDERED: SODIUM CHLORIDE 0.9% 500 ML IV SCH (16:15)
--- NOTE | 2019-10-10 16:19 | Emergency Department Note ---
Impression & Plan Necrotizing inflammation of lymph node, Sarcoidosis, CKD (chronic kidney disease), stage III, Mass of left side of neck, Leukocytosis, Hypercalcemia, Hypomagnesemia ED Provider Note NAME: CHARLEEN VALENTIN AGE: 54 SEX: M ARRIVES VIA: Walk-In INFORMANT: Patient, ED PROVIDER(S): Cale Apodaca MD CHIEF COMPLAINT: Neck pain/mass PLAN: Disposition: Admit MEDICAL DECISION MAKING: The patient is a pleasant 54-year-old gentleman with a past medical history of sarcoidosis, NIDDM 2, CKD, PILO on CPAP, history of upper GI bleed and symptomatic anemia, hypertension who presents emergency department for evaluation of worsening neck pain after being seen in the emergency department several days ago for similar symptoms with CT findings demonstrating a >6cm tonsillar mass with necrotizing lymph node with invasion of the musculature with COVID-19 test performed and pending per ENT recommendations prior to attempting outpatient biopsy. The patient reports he was instructed to return the emergency department if any worsening symptoms occurred such as pain which he feels he now has but did not have before. Reports his voice continues to be changed from his baseline but that this has been ongoing for the past 2 weeks and is not any different. He reports he is able to swallow without difficulty. And denies any chest pain, shortness of breath, cough congestion, fevers. He denies any travel to high risk areas of the COVID-19 or contact with any individuals with a confirmed diagnosis of COVID-19. However the patient is no acute distress, afebrile stable vital signs. On exam the patient has a large left posterior pharyngeal/tonsillar mass that encompasses the majority of the patient's oropharynx though he exhibits no evidence of airway compromise without evidence of stridor. He has swelling and tenderness of the left submandibular and left lateral cervical region that is consistent with his lymphadenopathy. There is no crepitus. WBC 17.4 which is increased from normal values several days ago. There is associated left shift. H/H8 0.4/24.6 approximate 2 prior range of values. Platelets within normal limits. Creatinine 1.9 increased from several days ago but within range of prior values in the setting of CKD. Chemistry without significant acidosis. Lactate 0.9 within normal limits. Calcium continues to be elevated at 11.4 similar to several days ago. Magnesium 1.6 with repletion provided. LFTs unremarkable. Procalcitonin 0.44. Given previous limitations on obtaining biopsy due to pending COVID-19 test a in-house rapid test was ordered but pending. CT of the neck was repeated but limited due to lack of contrast in setting of his CKD and overall showed similar findings that are suggestive of squamous cell carcinoma. There is note of interval development of gas within the left level second node which could be related to necrosis or ulceration but superimposed infection cannot be excluded. The patient's leukocytosis in spite of these findings he was treated empirically with Zosyn. Given his metabolic abnormalities reasonable to admit for further management of this and potential ENT evaluation. Patient is agreeable with this. Case was discussed with Dr. Sharif, [facility] hospitalist, who will eval uate the patient for admission. I did discuss the case with Dr. Davis, ENT on-call, on behalf of the admitting team. He explains that they would be unlikely to perform biopsy at this time until the patient's COVID-19 test is negative. She does suggest FNA as a alternative possibility for diagnosis. Recommendations relayed to admitting team. Triage Nursing notes reviewed and agree them. Prior medical records reviewed Vital Signs: reviewed and remarkable for no significant abnormalities Differential diagnosis: Viral syndrome, tonsillitis, streptococcal pharyngitis, mononucleosis, peritonsillar abscess, retropharyngeal abscess, otitis, pneumonia, influenza, as well as other pathologies. ER treatment provided: See below. Diagnostics interpreted by me: ECG: Sinus bradycardia, 59 bpm, no ectopy, incomplete left bundle branch block, No sgarbossa criteria, QTC 382, QRS 108. Similar to April 27, 2019. Cardiac Monitoring: Sinus bradycardia, 59 bpm, no ectopy. Laboratory studies: See below CT OF THE NECK WITHOUT CONTRAST CLINICAL HISTORY: left neck pain, mass/necrotizing LN COMPARISON STUDY: CT of the neck October 07, 2019. TECHNIQUE: Axial images of the neck were obtained without intravenous contrast. Automated exposure control was utilized for the study. A dose lowering technique was utilized adhering to the principles of ALARA. FINDINGS: Incidental note is made of bilateral exophthalmos. Visualized portions of the intracranial contents are unremarkable on this unenhanced examination. The right maxillary sinus is opacified. Mastoid air cells are clear. Note is again made of a large ulcerated left tonsillar mass which measures approximately 5.9 x 5.7 cm. This is suboptimally assessed on this unenhanced examination. This results in moderate effacement of the left oropharynx with airway narrowing. Multiple necrotic left cervical lymph nodes are noted. These are similar to CT of October 07, 2019 and measure up to 4 cm. A 2.5 cm necrotic left level 2 node on image 47 of 114 now contains gas. The epiglottis is normal. Enlarged left level 4 and 6 nodes are noted. There is no right cervical lymphadenopathy. No suspicious osseous lesions are noted. Lung apices are unremarkable. IMPRESSION: 1. Large ulcerated left tonsillar mass, measuring up to 5.9 x 5.7 cm. This is better depicted on recent contrast-enhanced CT of October 07, 2019. This lesion is highly suggestive of squamous cell carcinoma. This results in moderate airway narrowing. 2. Redemonstration of numerous necrotic left cervical lymph nodes consistent with fuad spread of disease. No right cervical lymphadenopathy. Interval development of gas within a left level 2 node which could be due to necrosis or ulceration. Superimposed infection cannot be excluded. -- XR chest 1V portable CLINICAL HISTORY: Chest Pain COMPARISON STUDY: No previous studies for comparison. FINDINGS: Lung volumes are normal. Lungs are clear. There is no pneumothorax or pleural effusion. Cardiac size is normal. Mediastinal contours are normal. There is no evidence for pulmonary edema. Incidental note is made of a healed left ninth rib fracture. IMPRESSION: No acute cardiopulmonary findings. Consultation(s): Dr. Sharif, [facility] Hospitalist. Dr. Davis, ENT on-call HPI: MEDICAL DECISION MAKING: The patient is a pleasant 54-year-old gentleman with a past medical history of sarcoidosis, NIDDM 2, CKD, PILO on CPAP, history of upper GI bleed and symptomatic anemia, hypertension who presents emergency department for evaluation of worsening neck pain after being seen in the emergency department several days ago for similar symptoms with CT findings demonstrating a >6cm tonsillar mass with necrotizing lymph node with invasion of the musculature with COVID-19 test performed and pending per ENT recommendations prior to attempting outpatient biopsy. The patient reports he was instructed to return the emergency department if any worsening symptoms occurred such as pain which he feels he now has but did not have before. Reports his voice continues to be changed from his baseline but that this has been ongoing for the past 2 weeks and is not any different. He reports he is able to swallow without difficulty. And denies any chest pain, shortness of breath, cough congestion, fevers. He denies any travel to high risk areas of the COVID-19 or contact with any individuals with a confirmed diagnosis of COVID-19. ROS: See above HPI for pertinent positives & negatives. A total of 10 systems reviewed and were otherwise negative. PAST MEDICAL HISTORY:See Below PAST SURGICAL HISTORY:See Below FAMILY HISTORY:See Below SOCIAL HISTORY:See Below HOME MEDICATIONS:See Below ALLERGIES:See Below VITALS:See Below PHYSICAL EXAMINATION: GENERAL: Awake, alert, fatigued-appearing, in no distress HENT: Normocephalic, atraumatic. Oropharynx demonstrates a large left posterior pharyngeal/peritonsillar mass encompassing majority of the patient's posterior pharynx. EYES: Normal conjunctiva. Sclera non-icteric. NECK: Supple. No nuchal rigidity. FROM. No JVD. No stridor. Once of the left submandibular and left lateral cervical region with mild tenderness. There is no crepitus or overlying skin changes. No pain with tracheal manipulation. RESPIRATORY: Clear to auscultation. CARDIAC: Regular rate, normal rhythm. Extremities warm and well perfused. Pulses equal. ABDOMEN: Soft, non-distended. No tenderness to palpation. No rebound or guarding. No masses. RECTAL: Deferred. MUSCULOSKELETAL: Chest examination reveals no tenderness. The back is symmetrical on inspection without obvious abnormality. There is no CVA tenderness to palpation. No joint edema. LOWER EXTREMITIES: Calves are equal size bilaterally and non-tender. No edema. No discoloration. NEURO: Normal sensorium. No sensory or motor deficits noted. SKIN: No rash or jaundice noted. Cale Apodaca MD Past Med/Surg History Medical History CKD (chronic kidney disease), stage III (Chronic) Depression (Chronic) Diabetes mellitus, type II (Chronic) GERD (gastroesophageal reflux disease) (Chronic) PILO on CPAP (Chronic) Sarcoidosis (Chronic) Surgical History H/O hernia repair (Chronic) Family History Other Heart disease Social History Preferred Language: Burkin[place] Communication Ability: Effective [employer] Required: No Beliefs That Will Affect Care: None Current Living Situation: Parent Other Information That Helps Us Care for You: No Feels Safe at Home: Yes Safety Concerns: Feels Safe At This Time Smoking Status: Former smoker Second Hand Exposure: Yes ; Hx Alcohol Use: Yes Alcohol type: hard liquor Alcohol Intake Frequency: Rarely Hx Substance Use: No Allergies Allergies Allergy/AdvReac Type Severity Reaction Status Date / Time No Known Allergies Allergy Verified 10/07/19 13:47 Home Meds Home Medications Medication Instructions Recorded Confirmed amlodipine 10 mg PO QAM 06/21/18 10/10/19 atorvastatin [Lipitor] 20 mg PO QAM 06/21/18 10/10/19 azathioprine 200 mg PO DAILY 06/21/18 10/10/19 bisoprolol fumarate 20 mg PO DAILY 06/21/18 10/10/19 lisinopril [Zestril] 40 mg PO QAM 06/21/18 10/10/19 prednisone See Rx Instructions .ROUTE .COMPLEX 06/21/18 10/10/19 glipizide 10 mg PO HS 04/27/19 10/10/19 glipizide 20 mg PO QAM 04/27/19 10/10/19 aspirin 325 mg PO DAILY 10/07/19 10/10/19 clotrimazole-betamethasone 1 applic TOPICAL UD 10/07/19 10/10/19 omeprazole magnesium [Prilosec OTC] 20 mg PO DAILY 10/07/19 10/10/19 sulfamethoxazole-trimethoprim 1 tab PO DAILY 10/07/19 10/10/19 clobetasol 1 applic TOPICAL DAILY 10/10/19 10/10/19 hydrocortisone 1 applic TOPICAL TID 10/10/19 10/10/19 ketoconazole 1 applic TOPICAL BID 10/10/19 10/10/19 nystatin-triamcinolone 1 applic TOPICAL TID 10/10/19 10/10/19 oxycodone-acetaminophen 1 tab BID PRN 10/10/19 10/10/19 Results & Data (ED) Vital Signs Vital Signs - 24 hr 10/10/19 15:40 10/10/19 16:41 10/10/19 17:58 Temperature 36.7 C Temperature Source Oral Pulse Rate 61 59 L Pulse Rate [Apical] 56 L Pulse Rhythm Regular Pulse Rhythm [Apical] Regular Pulse Strength [Apical] Normal Respiratory Rate 20 20 20 Respiratory Effort / Characteristics Non-Labored Spontaneous Respiratory Depth Normal Respiratory Pattern Regular Blood Pressure 106/63 Blood Pressure [Right Arm] 124/75 Blood Pressure Mean 77 Blood Pressure Mean [Right Arm] 91 Blood Pressure Position Sitting Blood Pressure Position [Right Arm] Sitting Pulse Oximetry 98 97 99 Oxygen Delivery Method Room Air Room Air Sepsis Recent Fever Within 48 Hours No Sepsis New/Unexplained Change in Mental Status No Sepsis Action Taken by Nursing No Action Required Laboratory Data Attestation: I reviewed the patient's lab results. Result diagrams: 10/10/19 16:52 10/10/19 16:52 Lab Results 10/10/19 10/10/19 10/10/19 Range/Units 16:52 16:52 16:52 WBC 17.45 H (4.8-10.8) K/uL RBC 2.34 L (4.7-6.1) M/uL Hgb 8.4 L (14.0-18.0) g/dL Hct 24.6 L (42-52) % MCV 105.1 H (80-100) fL MCH 35.9 H (25-34) pg MCHC 34.1 (32-36) g/dL RDW Std Deviation 61.3 H (36.4-46.3) fL RDW Coeff of Danae 16.1 H (11.5-14.5) % Plt Count 352 (130-400) K/uL MPV 8.7 (7.4-10.4) fL Immature Gran % (Auto) 1.5 % Neut % (Auto) 92.5 % Lymph % (Auto) 4.2 % [place] % (Auto) 1.7 % Eos % (Auto) 0.0 % Baso % (Auto) 0.1 % Immature Gran # (Auto) 0.26 H (0.00-0.02) K/uL Neut # (Auto) 16.15 H (1.4-6.5) K/uL Lymph # (Auto) 0.73 L (1.2-3.4) K/uL [place] # (Auto) 0.30 (0.11-0.59) K/uL Eos # (Auto) 0.00 (0-0.5) K/uL Baso # (Auto) 0.01 (0-0.2) K/uL Toxic Granulation 1+ PT 11.3 (9.0-12.0) Seconds INR 1.1 (0.9-1.1) APTT 23.5 (21.0-31.0) Seconds PTT Ratio 0.8 Sodium 134 L (136-145) mmol/L Potassium 4.0 (3.5-5.1) mmol/L Chloride 106 (98-107) mmol/L Carbon Dioxide 20 L (21-32) mmol/L Anion Gap 9.0 (3-11) BUN 44 H (7-18) mg/dl Creatinine 1.94 H (0.6-1.4) mg/dl Est Cr Clr Drug Dosing Not Reportable Est GFR ( Amer) 44.2 Est GFR (Non-Af Amer) 38.1 BUN/Creatinine Ratio 22.8 H (10-20) Glucose 191 H (70-99) mg/dl Calcium 11.4 H (8.5-10.1) mg/dl Phosphorus 2.4 L (2.5-4.9) mg/dl Magnesium 1.6 L (1.8-2.4) mg/dl Total Bilirubin 0.2 (0.2-1) mg/dl AST 7 L (15-37) U/L ALT 26 (12-78) U/L Alkaline Phosphatase 97 (45-117) U/L Total Protein 6.7 (6.4-8.2) gm/dl Albumin 2.5 L (3.4-5.0) gm/dl Globulin 4.2 H (2.5-4.0) gm/dl Albumin/Globulin Ratio 0.6 L (0.9-2) Lipase 359 (73-393) U/L Procalcitonin (0-0.5) ng/ml 10/10/19 Range/Units 16:53 WBC (4.8-10.8) K/uL RBC (4.7-6.1) M/uL Hgb (14.0-18.0) g/dL Hct (42-52) % MCV (80-100) fL MCH (25-34) pg MCHC (32-36) g/dL RDW Std Deviation (36.4-46.3) fL RDW Coeff of Danae (11.5-14.5) % Plt Count (130-400) K/uL MPV (7.4-10.4) fL Immature Gran % (Auto) % Neut % (Auto) % Lymph % (Auto) % [place] % (Auto) % Eos % (Auto) % Baso % (Auto) % Immature Gran # (Auto) (0.00-0.02) K/uL Neut # (Auto) (1.4-6.5) K/uL Lymph # (Auto) (1.2-3.4) K/uL [place] # (Auto) (0.11-0.59) K/uL Eos # (Auto) (0-0.5) K/uL Baso # (Auto) (0-0.2) K/uL Toxic Granulation PT (9.0-12.0) Seconds INR (0.9-1.1) APTT (21.0-31.0) Seconds PTT Ratio Sodium (136-145) mmol/L Potassium (3.5-5.1) mmol/L Chloride (98-107) mmol/L Carbon Dioxide (21-32) mmol/L Anion Gap (3-11) BUN (7-18) mg/dl Creatinine (0.6-1.4) mg/dl Est Cr Clr Drug Dosing Est GFR ( Amer) Est GFR (Non-Af Amer) BUN/Creatinine Ratio (10-20) Glucose (70-99) mg/dl Calcium (8.5-10.1) mg/dl Phosphorus (2.5-4.9) mg/dl Magnesium (1.8-2.4) mg/dl Total Bilirubin (0.2-1) mg/dl AST (15-37) U/L ALT (12-78) U/L Alkaline Phosphatase (45-117) U/L Total Protein (6.4-8.2) gm/dl Albumin (3.4-5.0) gm/dl Globulin (2.5-4.0) gm/dl Albumin/Globulin Ratio (0.9-2) Lipase (73-393) U/L Procalcitonin 0.44 (0-0.5) ng/ml Administered Medications Discontinued Medications Sodium Chloride (Nss) 500 mls @ 999 mls/hr IV .Q31M CATRACHO Stop: 10/10/19 16:45 Last Infusion: 10/10/19 17:23 Dose: 0 mls/hr Documented by: [id number] Admin: 10/10/19 16:53 Dose: 999 mls/hr Documented by: [id number] Acetaminophen (Ofirmev) 1,000 mg in 100 mls @ 400 mls/hr IV NOW STA Stop: 10/10/19 16:25 Last Infusion: 10/10/19 17:13 Dose: 0 mls/hr Documented by: [id number] Admin: 10/10/19 16:53 Dose: 400 mls/hr Documented by: [id number] Magnesium Sulfate/Dextrose (Magnesium Sulfate / D5w) 1 gm in 100 mls @ 100 mls/hr IV Q1H CATRACHO Stop: 10/10/19 19:44 Last Admin: 10/10/19 23:18 Dose: 100 mls/hr Documented by: [id number] Infusion: 10/10/19 23:17 Dose: 0 mls/hr Documented by: [id number] Admin: 10/10/19 19:55 Dose: 100 mls/hr Documented by: [id number] Sodium Chloride (Nss) 500 mls @ 999 mls/hr IV .Q31M ONE Stop: 10/10/19 18:09 Last Infusion: 10/10/19 20:27 Dose: 0 mls/hr Documented by: [id number] Admin: 10/10/19 19:55 Dose: 999 mls/hr Documented by: [id number] Piperacillin Sod/Tazobactam Sod (Zosyn) 4.5 gm in 120 mls @ 240 mls/hr IV NOW ONE Stop: 10/10/19 18:33 Last Infusion: 10/10/19 20:27 Dose: 0 mls/hr Documented by: [id number] Admin: 10/10/19 19:55 Dose: 240 mls/hr Documented by: [id number] Blood Pressure Blood Pressure Findings: Normal blood pressure Discharge Plan Visit Data *Final* Discharge Date/Time: 10/10/19 21:58 Chief Complaint: Throat Pain Stated Complaint: SOB, WAIT ON COVID TEST RESULTS ED Provider: Cale Apodaca Discharge Problem: Necrotizing inflammation of lymph node, Sarcoidosis, CKD (chronic kidney disease), stage III, Mass of left side of neck, Leukocytosis, Hypercalcemia, Hypomagnesemia Patient Disposition: Admitted As Inpatient Discharge Instructions Interventions: ED Discharge Assessment Last Done: 10/10/19 21:58 Discharge Problem: Leukocytosis Qualifiers: Leukocytosis type: unspecified Qualified Code(s): D72.829 - Elevated white blood cell count, unspecified
[2019-10-10 17:08] LABS: Hematocrit (blood only) 24.6 % (42-52); Hemoglobin 8.4 g/dL (14.0-18.0); Mean Corpuscular Hemoglobin 35.9 pg (25-34); Mean Corpuscular Hgb Conc 34.1 g/dL (32-36); Mean Corpuscular Volume 105.1 fL (80-100); Mean Platelet Volume 8.7 fL (7.4-10.4); Platelet Count 352 K/uL (130-400); RDW Coefficient of Variation 16.1 % (11.5-14.5); RDW Standard Deviation 61.3 fL (36.4-46.3); Red Blood Count 2.34 M/uL (4.7-6.1); White Blood Count 17.45 K/uL (4.8-10.8)
--- NOTE | 2019-10-10 17:16 | XRay Report ---
XR chest 1V portable CLINICAL HISTORY: Chest Pain COMPARISON STUDY: No previous studies for comparison. FINDINGS: Lung volumes are normal. Lungs are clear. There is no pneumothorax or pleural effusion. Car diac size is normal. Mediastinal contours are normal. There is no evidence for pulmonary edema. Incid ental note is made of a healed left ninth rib fracture. IMPRESSION: No acute cardiopulmonary findings. ACT 112: Negative or not required by law. Electronically signed by: Edd Ambrocio M.D. 10/10/2019 5:15 PM
[2019-10-10 17:22] LABS: INR 1.1 (0.9-1.1); Partial Thromboplastin Ratio 0.8; Partial Thromboplastin Time 23.5 Seconds (21.0-31.0); Prothrombin Time 11.3 Seconds (9.0-12.0)
[2019-10-10 17:24] LABS: Alanine Aminotransferase 26 U/L (12-78); Albumin Level 2.5 gm/dl (3.4-5.0); Aspartate Aminotransferase 7 U/L (15-37); BUN Creatinine Ratio 22.8 (10-20); Blood Urea Nitrogen 44 mg/dl (7-18); Calcium 11.4 mg/dl (8.5-10.1); Carbon Dioxide 20 mmol/L (21-32); Chloride 106 mmol/L (98-107); Est GFR (African American) 44.2; Est GFR (Non-African American) 38.1; Glucose 191 mg/dl (70-99); Lipase 359 U/L (73-393); Magnesium 1.6 mg/dl (1.8-2.4); Sodium 134 mmol/L (136-145)
[2019-10-10 17:26] LABS: Basophils # (auto) 0.01 K/uL (0-0.2); Basophils % (auto) 0.1 %; Immature Granulocytes # (auto) 0.26 K/uL (0.00-0.02); Immature Granulocytes % (auto) 1.5 %; Lymphocytes # (auto) 0.73 K/uL (1.2-3.4); Lymphocytes % (auto) 4.2 %; Monocytes % (auto) 1.7 %; Neutrophils # (auto) 16.15 K/uL (1.4-6.5); Neutrophils % (auto) 92.5 %; Toxic Granulation 1+
[2019-10-10 17:27] LABS: Albumin Globulin Ratio 0.6 (0.9-2); Alkaline Phosphatase 97 U/L (45-117); Bilirubin,Total 0.2 mg/dl (0.2-1); Globulin 4.2 gm/dl (2.5-4.0); Phosphorus 2.4 mg/dl (2.5-4.9); Total Protein 6.7 gm/dl (6.4-8.2)
[2019-10-10] MEDS ORDERED: SODIUM CHLORIDE 0.9% 500 ML IV ONE (17:39)
[2019-10-10] MEDS ORDERED: PIPERACILLIN/TAZOBACTAM 4.5 GM/120 ML BAG IV ONE (18:04)
[2019-10-10] MEDS ORDERED: PIPERACILL/TAZOBAC CONSULT ACTIVE PRN (18:04)
--- NOTE | 2019-10-10 19:44 | History & Physical Report ---
Date of Service October 10, 2019 Assessment & Plan (1) Mass of left side of neck: Present on admission with worsening neck pain Soft Tissue nect CT showed large ulcerated left tonsillar mass, measuring up to 5.9 x 5.7 cm. This is better depicted on recent contrast-enhanced CT of October 07, 2019. Redemonstration of numerous necrotic left cervical lymph nodes consistent with fuad spread of disease. Interval development of gas within a left level 2 node which could be due to necrosis or ulceration. This lesion is highly suggestive of squamous cell carcinoma. [place] screen and strep cx done on 10/06 negative ER physician discussed case with ENT Will consult ENT for further eval ENT will not proceed to any invasive procedure until COVID 19 r/o Will closely monitor for airway compromise (2) Hypercalcemia: Possible related to sarcoidosis vs malignancy vs dehydration Ca on admission 11.4, corrected ca 12.6 ( albumin 2.5) Continue IV fluids If cancer related: zometa 4mg IV Will check PTH, PTHrP, SPEP, DARREN level, 25 OH Vitamin D levels Albumin and Total protein ration (MM) if high Continue monitor BMP Will consult nephrology 3) Elevated WBC Possible related to prednisone or maligancy Received IV Zosyn in the ER Doubt about infection since procalcitonin negative, afebrile Blood cx collecting in the ER COVID 19 pending ( Low suspicious since pt denies any recent travel or contact to anyone tested positive) Will hold on further abx Continue monitor CBC 4) Sarcoidosis: Continue azathioprine and prednisone Follows with Dr. Dang in [place] 5) (CKD (chronic kidney disease), stage III: At baseline kidney function with creatinine of 2.02 Creatinine 1.9 today Continue monitor BMP 6) Diabetes mellitus, type II: Most recent Hba1c 7.2 on 05/05 Will hold oral diabetes med SSI while in-patient Monitor BS Electrolytes Imbalance Mg on admission 1.6 and phos on admission 2.4 Electrolytes replaced Continue monitor electrolytes (7) HTN (hypertension): Normotensive Continue amlodipine, bisoprolol (8)PILO on CPAP: CPAP HS (9) Anemia Hgb 8.4 at baseline Monitor CBC (10) DVT px on SCDs due to recent GI bleed 11) CODE STATUS FULL CODE History of Present Illness Chief Complaint: Neck Pain Primary Care Provider: Dewayne Ruiz MD 53yo M with a PMH of sarcoidosis, PILO on CPAP, CKD IIIb, DM II, GERD, depression, Hypertension, Hx UGI bleed, anemia present to the ER for worsening left side neck pain. Pt was in the ER on 10/06 for throat pain where he had soft tissue CT neck done that showed large ulcerated left tonsillar mass, measuring up to 5.9 x 5.7 cm and demonstrate numerous necrotic left cervical lymph nodes consistent with fuad spread of disease. CT on 10/06 was highly suggestive of squamous cell carcinoma. At that time ENT was contacted and recommended to r/o COVID 19 before proceed to any invasive procedure or biopsy. Pt said that pain has been getting worst in the last few days. He said that his voice changes. Pt said that he is not a smoker but exposed from 2nd hand smoker ( is a smoker). He said that he drinks alcohol socially. Denies any fever, SOB, chills, cough, dysphagia and weight loss. Allergies Allergy/AdvReac Type Severity Reaction Status Date / Time No Known Allergies Allergy Verified 10/07/19 13:47 Home Medications Home Medications Medication Instructions Recorded Confirmed Type amlodipine 10 mg PO QAM 06/21/18 10/10/19 History atorvastatin [Lipitor] 20 mg PO QAM 06/21/18 10/10/19 History azathioprine 200 mg PO DAILY 06/21/18 10/10/19 History bisoprolol fumarate 20 mg PO DAILY 06/21/18 10/10/19 History lisinopril [Zestril] 40 mg PO QAM 06/21/18 10/10/19 History prednisone See Rx Instructions .ROUTE .COMPLEX 06/21/18 10/10/19 History glipizide 10 mg PO HS 04/27/19 10/10/19 History glipizide 20 mg PO QAM 04/27/19 10/10/19 History aspirin 325 mg PO DAILY 10/07/19 10/10/19 History clotrimazole-betamethasone 1 applic TOPICAL UD 10/07/19 10/10/19 History omeprazole magnesium [Prilosec OTC] 20 mg PO DAILY 10/07/19 10/10/19 History sulfamethoxazole-trimethoprim 1 tab PO DAILY 10/07/19 10/10/19 History clobetasol 1 applic TOPICAL DAILY 10/10/19 10/10/19 History hydrocortisone 1 applic TOPICAL TID 10/10/19 10/10/19 History ketoconazole 1 applic TOPICAL BID 10/10/19 10/10/19 History nystatin-triamcinolone 1 applic TOPICAL TID 10/10/19 10/10/19 History oxycodone-acetaminophen 1 tab BID PRN 10/10/19 10/10/19 History Past Med/Surg History Medical History CKD (chronic kidney disease), stage III (Chronic) Depression (Chronic) Diabetes mellitus, type II (Chronic) GERD (gastroesophageal reflux disease) (Chronic) PILO on CPAP (Chronic) Sarcoidosis (Chronic) Surgical History H/O hernia repair (Chronic) Family History Other Heart disease Social History Preferred Language: Romanian Communication Ability: Effective 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 Beliefs That Will Affect Care: None Current Living Situation: Parent Other Information That Helps Us Care for You: No Feels Safe at Home: Yes Safety Concerns: Feels Safe At This Time Smoking Status: Former smoker Second Hand Exposure: Yes ; Hx Alcohol Use: Yes Alcohol type: hard liquor Alcohol Intake Frequency: Rarely Hx Substance Use: No Review of Systems Review of Systems: All systems reviewed & are unremarkable except as noted in HPI & below Physical Exam Physical Exam: General- No acute distress Head- atraumatic Eyes- PERRL, EOMI, ENT- left palpable mass located around left parotid gland, large left posterior pharyngeal/peritonsillar mass Lungs- clear to auscultation, no stridor Heart- regular rhythm; no murmur Abdomen- normal bowel sounds, soft, nontender Extremities- no calf tenderness, +edema Neuro- alert, oriented x 3; PERRL, EOMI; no facial palsy; no dysarthria Skin- warm & dry Results & Data Results & Data ([facility]) Vital Signs (Past 12 Hours) Vital Signs Temp Pulse Pulse Resp BP BP Pulse Ox 10/10/19 17:58 56 L 20 124/75 99 10/10/19 16:41 59 L 20 97 10/10/19 15:40 36.7 C 61 20 106/[address] OF THE NECK WITHOUT CONTRAST CLINICAL HISTORY: left neck pain, mass/necrotizing LN COMPARISON STUDY: CT of the neck October 07, 2019. TECHNIQUE: Axial images of the neck were obtained without intravenous contrast. Automated exposure control was utilized for the study. A dose lowering technique was utilized adhering to the principles of ALARA. FINDINGS: Incidental note is made of bilateral exophthalmos. Visualized portions of the intracranial contents are unremarkable on this unenhanced examination. The right maxillary sinus is opacified. Mastoid air cells are clear. Note is again made of a large ulcerated left tonsillar mass which measures approximately 5.9 x 5.7 cm. This is suboptimally assessed on this unenhanced examination. This results in moderate effacement of the left oropharynx with airway narrowing. Multiple necrotic left cervical lymph nodes are noted. These are similar to CT of October 07, 2019 and measure up to 4 cm. A 2.5 cm necrotic left level 2 node on image 47 of 114 now contains gas. The epiglottis is normal. Enlarged left level 4 and 6 nodes are noted. There is no right cervical lymphadenopathy. No suspicious osseous lesions are noted. Lung apices are unremarkable. IMPRESSION: 1. Large ulcerated left tonsillar mass, measuring up to 5.9 x 5.7 cm. This is better depicted on recent contrast-enhanced CT of October 07, 2019. This lesion is highly suggestive of squamous cell carcinoma. This results in moderate airway narrowing. 2. Redemonstration of numerous necrotic left cervical lymph nodes consistent with fuad spread of disease. No right cervical lymphadenopathy. Interval development of gas within a left level 2 node which could be due to necrosis or ulceration. Superimposed infection cannot be excluded. ACT 112: Negative or not required by law. Electronically signed by: Edd Ambrocio M.D. 10/10/2019 8:49 PM Dictated: 10/10/192036 Transcribed: 10/10/192036 XR chest 1V portable CLINICAL HISTORY: Chest Pain COMPARISON STUDY: No previous studies for comparison. FINDINGS: Lung volumes are normal. Lungs are clear. There is no pneumothorax or pleural effusion. Cardiac size is normal. Mediastinal contours are normal. There is no evidence for pulmonary edema. Incidental note is made of a healed left ninth rib fracture. IMPRESSION: No acute cardiopulmonary findings. ACT 112: Negative or not required by law. Electronically signed by: Edd Ambrocio M.D. 10/10/2019 5:15 PM Dictated: 10/10/19 171 Transcribed: 10/10/19 171
[2019-10-10] MEDS: MAGNESIUM SULFATE / D5W 1 GM/100 ML BAG IV SCH ×2 (19:55→23:18)
--- NOTE | 2019-10-10 20:50 | CT Scan Report ---
CT OF THE NECK WITHOUT CONTRAST CLINICAL HISTORY: left neck pain, mass/necrotizing LN COMPARISON STUDY: CT of the neck October 07, 2019. TECHNIQUE: Axial images of the neck were obtained without intravenous contrast. Automated exposure co ntrol was utilized for the study. A dose lowering technique was utilized adhering to the principles of ALARA. FINDINGS: Incidental note is made of bilateral exophthalmos. Visualized portions of the intracranial contents are unremarkable on this unenhanced examination. The right maxillary sinus is opacified. Mas toid air cells are clear. Note is again made of a large ulcerated left tonsillar mass which measures approximately 5.9 x 5.7 cm. This is suboptimally assessed on this unenhanced examination. This result s in moderate effacement of the left oropharynx with airway narrowing. Multiple necrotic left cervica l lymph nodes are noted. These are similar to CT of October 07, 2019 and measure up to 4 cm. A 2.5 cm n ecrotic left level 2 node on image 47 of 114 now contains gas. The epiglottis is normal. Enlarged lef t level 4 and 6 nodes are noted. There is no right cervical lymphadenopathy. No suspicious osseous le sions are noted. Lung apices are unremarkable. IMPRESSION: 1. Large ulcerated left tonsillar mass, measuring up to 5.9 x 5.7 cm. This is better depicted on rece nt contrast-enhanced CT of October 07, 2019. This lesion is highly suggestive of squamous cell carcinom a. This results in moderate airway narrowing. 2. Redemonstration of numerous necrotic left cervical lymph nodes consistent with fuad spread of dis ease. No right cervical lymphadenopathy. Interval development of gas within a left level 2 node which could be due to necrosis or ulceration. Superimposed infection cannot be excluded. ACT 112: Negative or not required by law. Electronically signed by: Edd Ambrocio M.D. 10/10/2019 8:49 PM
[2019-10-10] MEDS ORDERED: GLUCOSE 10 TABS/TUBE PO PRN (22:24)
[2019-10-10] MEDS ORDERED: GLUCOSE 40% GEL 15 GM TUBE PO PRN (22:24)
[2019-10-10] MEDS ORDERED: DEXTROSE 50% 50 ML SYRINGE IV PRN (22:24)
[2019-10-10] MEDS ORDERED: CLOTRIMAZOLE/BETAMETHASONE CR 15 GM TUBE EXT SCH (22:24)
[2019-10-10] MEDS ORDERED: GLUCAGON FOR INJ 1 MG VIAL SQ PRN (22:24)
[2019-10-11] MEDS: OXYCODONE/ACETAMINOPHEN 5mg/325mg TAB PO PRN ×3 (00:06→17:22)
[2019-10-11] MEDS: SODIUM CHLORIDE 0.9% 1000ML 1,000 ML IV SCH ×3 (00:07→23:37)
[2019-10-11] MEDS: INSULIN ASPART 100 UNITS/ML 3 ML PEN SC SCH ×5 (01:10→21:20)
[2019-10-11 06:21] LABS: Hematocrit (blood only) 25.1 % (42-52); Hemoglobin 8.4 g/dL (14.0-18.0); Mean Corpuscular Hemoglobin 35.1 pg (25-34); Mean Corpuscular Hgb Conc 33.5 g/dL (32-36); Mean Platelet Volume 8.7 fL (7.4-10.4); Nucleated RBC # (auto) 0.02 K/uL (0-0); Nucleated RBC % (auto) 0.2 %; Platelet Count 325 K/uL (130-400); RDW Coefficient of Variation 16.3 % (11.5-14.5); RDW Standard Deviation 62.2 fL (36.4-46.3); Red Blood Count 2.39 M/uL (4.7-6.1); White Blood Count 10.87 K/uL (4.8-10.8)
[2019-10-11 06:52] LABS: Albumin Level 2.3 gm/dl (3.4-5.0); BUN Creatinine Ratio 19.9 (10-20); Calcium 11.4 mg/dl (8.5-10.1); Creatinine Clr Calc Pharmacy 49.4 ml/min; Est GFR (African American) 45.3; Est GFR (Non-African American) 39.1; Potassium 3.6 mmol/L (3.5-5.1)
[2019-10-11 06:55] LABS: Albumin Globulin Ratio 0.6 (0.9-2); Bilirubin,Total 0.2 mg/dl (0.2-1); Globulin 3.8 gm/dl (2.5-4.0); Total Protein 6.1 gm/dl (6.4-8.2)
[2019-10-11] MEDS ORDERED: SODIUM PHOSPHATE 3 MMOL/1 ML INFUSION IV STA (07:31)
[2019-10-11] MEDS ORDERED: AMLODIPINE BESYLATE 5 MG TAB PO SCH (08:00)
[2019-10-11] MEDS ORDERED: ASPIRIN 325 MG ECTAB PO SCH (08:00)
[2019-10-11] MEDS ORDERED: lisinopriL 40 MG TAB PO SCH (08:00)
[2019-10-11] MEDS ORDERED: ATORVASTATIN 20 MG TAB PO SCH (08:00)
[2019-10-11] MEDS ORDERED: PANTOprazole 40 MG TAB PO SCH (08:00)
[2019-10-11] MEDS ORDERED: SULFA/TRIMETH 400/80MG TAB PO SCH (08:00)
[2019-10-11] MEDS ORDERED: BISOPROLOL FUMARATE 5 MG TAB PO SCH (08:00)
[2019-10-11] MEDS ORDERED: azaTHIOprine 50 MG TAB PO SCH (08:00)
[2019-10-11] MEDS ORDERED: CLOBETASOL PROPIONATE 0.05% OINT 15 GM TUBE EXT SCH (08:00)
[2019-10-11] MEDS ORDERED: SODIUM PHOSPHATE 15 MMOL in SODIUM CHLORIDE 0.9% 250 ML IV ONE (08:30)
[2019-10-11] MEDS: HYDROCORTISONE 2.5% CR 30 GM TUBE EXT SCH ×2 (08:33→15:58)
[2019-10-11] MEDS: KETOCONAZOLE 2% CR 15 GM TUBE EXT SCH ×2 (08:34→21:04)
[2019-10-11] MEDS: NYSTATIN/TRIAMCIN OINT 15 GM TUBE EXT SCH ×2 (08:34→15:58)
[2019-10-11] MEDS: CARBOHYDRATES FOR HYPOGLYCEMIA PO PRN ×3 (08:54→12:26)
[2019-10-11] MEDS: CALCITONIN SALMON SQ SCH ×2 (09:59→15:57)
[2019-10-11] MEDS ORDERED: ZOLEDRONIC ACID 4 MG in 0.9 % SODIUM CHLORIDE 100 ML IV ONE (10:00)
--- NOTE | 2019-10-11 10:11 | Nephrology Consultation ---
Date of Consultation October 11, 2019 Assessment & Plan (1) Hypercalcemia: Patient with hypercalcemia likely due to malignancy. Patient has tonsillar mass on CT scan. His PTH is suppressed and vitamin D is low. He has history of sarcoidosis but given acute change in calcium and recent mass likely suggest malignancy. Patient is receiving IV fluids. -We will start calcitonin at 375 mcg every 8 hourly for 3 doses. -We will give Zometa 4 mg IV once. -Monitor calcium daily (2) Tonsillar mass: Likely due to malignancy. Patient is planned for biopsy by ENT after testing for COVID-19. We will continue calcium lowering medications until we have pathology diagnosis of the neck mass. (3) Anemia: Likely multifactorial including renal disease and possibly malignancy. Monitor and transfuse as needed. No role for Epogen as patient might possibly have malignancy. (4) CKD (chronic kidney disease), stage III: Patient with CKD stage III baseline creatinine of 1.8-2. Renal function appears to be at baseline. Electrolytes are stable with no signs of volume ove rload. No indication for dialysis. -Avoid contrast and other nephrotoxins unless lifesaving. -Daily BMP History of Present Illness Reason for Consultation: Hypercalcemia Requesting Physician: Miracle Sharif MD Attending Physician: Miracle Sharif MD History of Present Illness This is 54-year-old male with a history of sarcoidosis, type 2 diabetes, CKD stage III with baseline creatinine of 1.8-2, obstructive apnea and GI bleed was admitted on 10/10/2019 with the dysphagia neck pain. Patient had initially presented to an urgent care and was found to have a neck mass which prompted referral. In the emergency room he was found to have a neck and tonsillar mass. CT scan of head and neck showed greater than 6 cm tonsillar mass with necrotizing lymph node. He is planned for biopsy by ENT. He was found to have calcium of 11.4 which is increased from 11.2 on 10/07/2019. His albumin is 2.4 and corrected calcium is about 15. His PTH is suppressed at less than 6.3 and vitamin D is low at 16.8. He denies any shortness of breath but complains of neck pain and difficulty swallowing. No NSAID use. No urinary symptoms. He is getting normal saline drip. He is in airborne isolation pending test for COVID- 19. Patient is a non-smoker. Allergies Allergy/AdvReac Type Severity Reaction Status Date / Time No Known Allergies Allergy Verified 10/07/19 13:47 Home Medications Home Medications Medication Instructions Recorded Confirmed Type amlodipine 10 mg PO QAM 06/21/18 10/10/19 History atorvastatin [Lipitor] 20 mg PO QAM 06/21/18 10/10/19 History azathioprine 200 mg PO DAILY 06/21/18 10/10/19 History bisoprolol fumarate 20 mg PO DAILY 06/21/18 10/10/19 History lisinopril [Zestril] 40 mg PO QAM 06/21/18 10/10/19 History prednisone See Rx Instructions .ROUTE .COMPLEX 06/21/18 10/10/19 History glipizide 10 mg PO HS 04/27/19 10/10/19 History glipizide 20 mg PO QAM 04/27/19 10/10/19 History aspirin 325 mg PO DAILY 10/07/19 10/10/19 History clotrimazole-betamethasone 1 applic TOPICAL UD 10/07/19 10/10/19 History omeprazole magnesium [Prilosec OTC] 20 mg PO DAILY 10/07/19 10/10/19 History sulfamethoxazole-trimethoprim 1 tab PO DAILY 10/07/19 10/10/19 History clobetasol 1 applic TOPICAL DAILY 10/10/19 10/10/19 History hydrocortisone 1 applic TOPICAL TID 10/10/19 10/10/19 History ketoconazole 1 applic TOPICAL BID 10/10/19 10/10/19 History nystatin-triamcinolone 1 applic TOPICAL TID 10/10/19 10/10/19 History oxycodone-acetaminophen 1 tab BID PRN 10/10/19 10/10/19 History Patient History Medical History CKD (chronic kidney disease), stage III (Chronic) Depression (Chronic) Diabetes mellitus, type II (Chronic) GERD (gastroesophageal reflux disease) (Chronic) PILO on CPAP (Chronic) Sarcoidosis (Chronic) Surgical History H/O hernia repair (Chronic) Family History Other Heart disease Social History Preferred Language: Thai Communication Ability: Effective Outpatient Scheduler Required: No Beliefs That Will Affect Care: None Current Living Situation: Parent Other Information That Helps Us Care for You: No Feels Safe at Home: Yes Safety Concerns: Feels Safe At This Time Smoking Status: Former smoker Second Hand Exposure: Yes ; Hx Alcohol Use: Yes Alcohol type: hard liquor Alcohol Intake Frequency: Rarely Hx Substance Use: No Review of Systems Review of Systems: All systems reviewed & are unremarkable except as noted in HPI & below Physical Exam Physical Exam: General exam: Appears comfortable, no acute distress HEENT: Pupils are equal and reactive to light. Left neck mass which is firm, mass seen on the left peritonsillar area Neck: No JVD, neck is supple trachea is midline Respiratory system: Clear breath sounds bilaterally. Gastrointestinal: Abdomen is soft, non distended, non tender, bowel sounds are present CVS: Regular rate and rhythm. No murmurs, rubs or gallops Musculoskeletal: No joint or muscle tenderness Extremities: Non tender, no edema, peripheral pulses are present Neuro: Oriented, no tremors, no focal neurological deficits Skin: No rashes Results & Data Vital Signs (Past 12 Hours) Vital Signs Temp Pulse Pulse Pulse Resp BP BP 10/11/19 08:15 36.8 C 90 16 110/67 10/10/19 22:38 36.7 C 57 L 15 109/65 10/10/19 21:58 56 L 18 120/70 Pulse Ox 10/11/19 08:15 96 10/10/19 22:38 10/10/19 21:58 98 Laboratory Results 10/11/19 06:07 10/10/19 10/10/19 10/11/19 16:52 16:52 06:07 WBC 17.45 H 10.87 H RBC 2.34 L 2.39 L MCV 105.1 H 105.0 H MCH 35.9 H 35.1 H MCHC 34.1 33.5 RDW Std Deviation 61.3 H 62.2 H RDW Coeff of Danae 16.1 H 16.3 H Plt Count 352 325 MPV 8.7 8.7 Phosphorus 2.4 L Albumin 2.5 L 10/11/19 06:07 WBC RBC MCV MCH MCHC RDW Std Deviation RDW Coeff of Danae Plt Count MPV Phosphorus Albumin 2.3 L (1) Anemia Anemia type: unspecified type Qualified Code(s): D64.9 - Anemia, unspecified
--- NOTE | 2019-10-11 10:30 | Electrocardiogram Report ---
Test Reason : Blood Pressure : / mmHG Vent. Rate : 059 BPM Atrial Rate : 059 BPM P-R Int : 156 ms QRS Dur : 108 ms QT Int : 386 ms P-R-T Axes : 033 -04 -02 degrees QTc Int : 382 ms Sinus bradycardia Early repolarization Borderline ECG When compared with ECG of 27-APR-2019 13:36, Nonspecific T wave abnormality no longer evident in Lateral leads Confirmed by Orlando Cohen ([id number]) on 10/11/2019 10:30:42 AM Referred By: REFERRED SELF Confirmed By:Orlando Cohen
[2019-10-11] MEDS ORDERED: CALCITONIN SALMON 400 UNITS/2 ML SQ SCH (14:00)
--- NOTE | 2019-10-11 15:35 | Hospitalist Progress Note ---
Date of Service October 11, 2019 Assessment & Plan (1) Mass of left side of neck: Present on admission with worsening neck pain Soft Tissue nect CT showed large ulcerated left tonsillar mass, measuring up to 5.9 x 5.7 cm. This is better depicted on recent contrast-enhanced CT of October 07, 2019. Redemonstration of numerous necrotic left cervical lymph nodes consistent with fuad spread of disease. Interval development of gas within a left level 2 node which could be due to necrosis or ulceration. This lesion is highly suggestive of squamous cell carcinoma. ER physician discussed case with ENT ENT will not proceed for any invasive procedure until COVID 19 r/o Case discussed with ENT Might able to get enough sample with a FNA since the mass is palpable COVID [address] Disla tomorrow to see if he wants to see the pt while in the hospital or outpatient Will arrange for outpatient Oncology as well with Dr. Medrano to discuss treatmant after the biopsy if positive for cancer Continue closely monitor for airway compromise (2) Hypercalcemia: Possible related to sarcoidosis vs malignancy vs dehydration Ca on admission 11.4, corrected ca 12.6 ( albumin 2.5) Continue IV fluids Repeat calcium today 11.4 PTH is suppressed and vitamin D is low Nephrology on board Case discussed with Nephrology recommended to start calcitonin at 375 mcg every 8 hourly for 3 doses and Zometa 4 mg IV givenx1 Continue monitor BMP 3) Elevated WBC Possible related to prednisone or malignancy Received IV Zosyn in the ER Doubt about infection since procalcitonin negative, afebrile WBC trending down Blood cx collecting in the ER pending COVID 19 pending ( Low suspicious since pt denies any recent travel or contact to anyone tested positive) Called lab about COVID 19 result if received from [place] No result for COVID 19 because [facility] is back up as per staff in the lab Continue to hold additional abx Continue monitor CBC 4) Sarcoidosis: Continue azathioprine and prednisone Follows with Dr. Dang in [place] 5) (CKD (chronic kidney disease), stage III: At baseline kidney function with creatinine of 2.02 Creatinine 1.9 today Continue monitor BMP 6) Diabetes mellitus, type II: Hypoglyecemia Most recent Hba1c 7.2 on 05/05 Continue to hold oral diabetes med Monitor BS 7)Electrolytes Imbalance Mg on admission 1.6 and phos on admission 2.4 Mg 2 today Continue monitor electrolytes (8) HTN (hypertension): Normotensive Continue amlodipine, bisoprolol (9)PILO on CPAP: CPAP HS (10) Anemia Hgb 8.4 at baseline Monitor CBC (11) DVT px on SCDs due to recent GI bleed (12) CODE STATUS FULL CODE Admission and Anticipated Discharge Date Admission Date: October 10, 2019 Subjective Pt was seen and examined. Lying in bed with no distress Pt said that he continues to have tenderness in the left side of his neck (around left parotid area) He said that he is able to swallow His blood sugar drop this morning Denies any chest pain, palpitation, dizziness and SOB Physical Exam Physical Exam: General- No acute distress Head- atraumatic Eyes- PERRL, EOMI, ENT- left palpable mass located around left parotid gland Lungs- clear to auscultation Heart- regular rhythm; no murmur Abdomen- normal bowel sounds, soft, nontender Extremities- no calf tenderness, +edema Neuro- alert, oriented x 3; PERRL, EOMI; no facial palsy; no dysarthria Skin- warm & dry Results & Data Results & Data ([facility]) Vital Signs (Past 12 Hours) Vital Signs Temp Pulse Resp BP Pulse Ox 10/11/19 08:15 36.8 C 90 16 110/67 96
[2019-10-11] MEDS ORDERED: LORazepam 0.5 MG TAB PO STA (21:47)
[2019-10-11] MEDS ORDERED: ACETAMINOPHEN 325 MG TAB PO STA (23:03)
[2019-10-11] MEDS ORDERED: LACTATED RINGER'S 1,000 ML IV ONE (23:07)
[2019-10-11] MEDS ORDERED: ACETAMINOPHEN 325 MG TAB ONE (23:11)
[2019-10-11] MEDS ORDERED: [UNRECOGNIZED DRUG - REMARK] TOP PRN (23:48)
[2019-10-12 00:01] LABS: Appearance Urine Clear (Clear); Bacteria Urine Automated Negative (Negative); Bilirubin Urine Negative (Negative); Blood Urine Negative (Negative); Color Urine Yellow; Glucose Urine UA Negative (Negative); Ketones Urine Negative (Negative); Leukocyte Esterase Urine Negative (Negative); Nitrite Urine Negative (Negative); Protein Urine 1+ (Negative); RBC Urine Automated 0-4 /hpf (0-4); Specific Gravity Urine 1.016 (1.000-1.030); Urobilinogen Urine Negative (Negative)
[2019-10-12 00:22] LABS: BUN Creatinine Ratio 16.3 (10-20); Calcium 9.6 mg/dl (8.5-10.1); Creatinine Clr Calc Pharmacy 47.9 ml/min; Est GFR (African American) 43.6; Est GFR (Non-African American) 37.7; Magnesium 1.6 mg/dl (1.8-2.4); Potassium 3.8 mmol/L (3.5-5.1)
[2019-10-12] MEDS ORDERED: PIPERACILL/TAZOBAC CONSULT ACTIVE PRN (00:34)
--- NOTE | 2019-10-12 00:36 | Hospitalist Progress Note ---
Date of Service October 12, 2019 Assessment & Plan (1) Hypotension: Hypotension plus fever spike Multifactorial : Possible sepsis with lactic acid and patient secondary to infected left neck mass (Immunocompromised patient given history of renal sarcoidosis on home Imuran/prednisone Rx) Possible adrenal insufficiency Transfer to medical telemetry for closer monitoring Appropriate to hold home antihypertensives for now hypotension Cultures, Daptomycin, Zosyn for now IVF, follow lactic acid Decadron 1 dose for possible adrenal insufficiency Continue prednisone Hold Imuran for now given septic state until further discussion with patient's hospice clinical supervisor from [place]. Update ENT specialist plan consultant of CT findings. N.p.o. for now in anticipation of procedure ADDENDUM : Case discussed with Dr. Davis ([facility] specialist plan consultant). She recommends adding clindamycin to antibiotic regimen for possible incipient necrotizing fasciitis. Will come to hospital to evaluate patient. Admission and Anticipated Discharge Date Admission Date: October 10, 2019 Subjective Made aware by RN around 11 PM of temperature spike of 38. SBP 90s as per RN. Worsening left-sided neck pain as per patient. No chest pain, no S OB. Dry cough symptoms. Physical Exam Physical Exam: GENERAL: Slightly uncomfortable, no stridor, obese, pleasant SKIN: Pallor , warm HEENT: Pale palpebral conjunctivae, no ptosis, dry buccal mucosa, limited mouth opening NECK : Short neck, palpable mass left side of neck, left-sided neck tenderness CHEST : Decreased breath sounds , no tenderness HEART : RRR, no obvious murmurs ABDOMEN: Some distention, nontender EXTREMITIES : No LE swelling/tenderness, no other conspicuous deformities noted NEUROLOGIC : Coherent, no facial asymmetry, no other gross focality Results & Data Results & Data ([facility]) Vital Signs (Past 12 Hours) Vital Signs Temp Pulse Resp BP Pulse Ox 10/11/19 22:55 38.1 C H 88 18 94/57 L 93 10/11/19 15:37 37.1 C 77 18 102/61 98 Laboratory Results Laboratory Results WBC 10.87 K/uL (4.8-10.8) H 10/11/19 06:07 RBC 2.39 M/uL (4.7-6.1) L 10/11/19 06:07 Hgb 8.4 g/dL (14.0-18.0) L 10/11/19 06:07 Hct 25.1 % (42-52) L 10/11/19 06:07 MCV 105.0 fL (80-100) H 10/11/19 06:07 MCH 35.1 pg (25-34) H 10/11/19 06:07 MCHC 33.5 g/dL (32-36) 10/11/19 06:07 RDW Std Deviation 62.2 fL (36.4-46.3) H 10/11/19 06:07 RDW Coeff of Danae 16.3 % (11.5-14.5) H 10/11/19 06:07 Plt Count 325 K/uL (130-400) 10/11/19 06:07 MPV 8.7 fL (7.4-10.4) 10/11/19 06:07 Immature Gran % (Auto) 1.5 % 10/10/19 16:52 Neut % (Auto) 92.5 % 10/10/19 16:52 Lymph % (Auto) 4.2 % 10/10/19 16:52 Dickinson % (Auto) 1.7 % 10/10/19 16:52 Eos % (Auto) 0.0 % 10/10/19 16:52 Baso % (Auto) 0.1 % 10/10/19 16:52 Immature Gran # (Auto) 0.26 K/uL (0.00-0.02) H 10/10/19 16:52 Neut # (Auto) 16.15 K/uL (1.4-6.5) H 10/10/19 16:52 Lymph # (Auto) 0.73 K/uL (1.2-3.4) L 10/10/19 16:52 Dickinson # (Auto) 0.30 K/uL (0.11-0.59) 10/10/19 16:52 Eos # (Auto) 0.00 K/uL (0-0.5) 10/10/19 16:52 Baso # (Auto) 0.01 K/uL (0-0.2) 10/10/19 16:52 Absolute Nucleated RBC 0.02 K/uL (0-0) H 10/11/19 06:07 Nucleated RBC % (auto) 0.2 % 10/11/19 06:07 Toxic Granulation 1+ 10/10/19 16:52 PT 11.3 Seconds (9.0-12.0) 10/10/19 16:52 INR 1.1 (0.9-1.1) 10/10/19 16:52 APTT 23.5 Seconds (21.0-31.0) 10/10/19 16:52 PTT Ratio 0.8 10/10/19 16:52 Sodium 134 mmol/L (136-145) L 10/11/19 23:28 Potassium 3.8 mmol/L (3.5-5.1) 10/11/19 23:28 Chloride 106 mmol/L (98-107) 10/11/19 23:28 Carbon Dioxide 21 mmol/L (21-32) 10/11/19 23:28 Anion Gap 8.0 (3-11) 10/11/19 23:28 BUN 32 mg/dl (7-18) H 10/11/19 23:28 Creatinine 1.96 mg/dl (0.6-1.4) H 10/11/19 23:28 Est Cr Clr Drug Dosing 47.9 ml/min 10/11/19 23:28 Est GFR ( Amer) 43.6 10/11/19 23:28 Est GFR (Non-Af Amer) 37.7 10/11/19 23:28 BUN/Creatinine Ratio 16.3 (10-20) 10/11/19 23:28 Glucose 80 mg/dl (70-99) 10/11/19 23:28 POC Glucose 93 mg/dl (70-99) 10/12/19 00:42 Lactate 2.3 mmol/L (0.4-2.0) H* 10/11/19 23:38 Calcium 9.6 mg/dl (8.5-10.1) D 10/11/19 23:28 Phosphorus 2.4 mg/dl (2.5-4.9) L 10/10/19 16:52 Magnesium 1.6 mg/dl (1.8-2.4) L 10/11/19 23:28 Total Bilirubin 0.2 mg/dl (0.2-1) 10/11/19 06:07 AST 8 U/L (15-37) L 10/11/19 06:07 ALT 23 U/L (12-78) 10/11/19 06:07 Alkaline Phosphatase 92 U/L (45-117) 10/11/19 06:07 Total Protein 6.1 gm/dl (6.4-8.2) L 10/11/19 06:07 Albumin 2.3 gm/dl (3.4-5.0) L 10/11/19 06:07 Globulin 3.8 gm/dl (2.5-4.0) 10/11/19 06:07 Albumin/Globulin Ratio 0.6 (0.9-2) L 10/11/19 06:07 Lipase 359 U/L (73-393) 10/10/19 16:52 25-OH Vitamin D Total 16.8 ng/ml (30-100) L 10/11/19 06:07 Procalcitonin 0.44 ng/ml (0-0.5) 10/10/19 16:53 PTH Intact < 6.3 pg/ml (18.4-80.1) L 10/11/19 06:07 Urine Color Yellow 10/11/19 23:45 Urine Appearance Clear (Clear) 10/11/19 23:45 Urine pH 5.0 (4.5-7.5) 10/11/19 23:45 Ur Specific Felt 1.016 (1.000-1.030) 10/11/19 23:45 Urine Protein 1+ (Negative) H 10/11/19 23:45 Urine Glucose (UA) Negative (Negative) 10/11/19 23:45 Urine Ketones Negative (Negative) 10/11/19 23:45 Urine Blood Negative (Negative) 10/11/19 23:45 Urine Nitrite Negative (Negative) 10/11/19 23:45 Urine Bilirubin Negative (Negative) 10/11/19 23:45 Urine Urobilinogen Negative (Negative) 10/11/19 23:45 Ur Leukocyte Esterase Negative (Negative) 10/11/19 23:45 Urine WBC (Auto) 1-5 /hpf (0-5) 10/11/19 23:45 Urine RBC (Auto) 0-4 /hpf (0-4) 10/11/19 23:45 U Hyaline Cast (Auto) 5-10 /lpf (0-5) H 10/11/19 23:45 U Epithel Cells (Auto) 10-20 /lpf (0-5) H 04/26/20 23:45 Urine Bacteria (Auto) Negative (Negative) 10/11/19 23:45 Granular Casts 1-5 /lpf (0) H 10/11/19 23:45 Urine Yeast Not Reportable 10/11/19 23:[address] neck initial read : Large ulcerated left tonsillar mass and lymphadenopathy and gas noted in the level 2 lymph node left. New gas tracking along the outer aspect of the sternocleido mastoid muscle increased now with extensive fat stranding in left greater than the right bilateral submandibular spaces. Platysmal thickening and subcutaneous fat stranding in the anterior neck bilaterally. Given rapid progression, superimposed infection should be considered. Narrowing airway appears progressed from prior now severe but this may be related to breath-holding during exam. CXR as per my interpretation: Atelectasis, cardiomegaly .
[2019-10-12] MEDS: CALCITONIN SALMON SQ SCH (00:48)
[2019-10-12] MEDS ORDERED: DAPTOMYCIN CONSULT ACTIVE PRN (00:49)
[2019-10-12] MEDS: HYDROCORTISONE 2.5% CR 30 GM TUBE EXT SCH (00:51)
[2019-10-12] MEDS: NYSTATIN/TRIAMCIN OINT 15 GM TUBE EXT SCH (00:52)
[2019-10-12] MEDS ORDERED: D5W AND LACTATED RINGERS 1,000 ML IV SCH ×2 (01:00→02:00)
[2019-10-12] MEDS ORDERED: PIPERACILLIN/TAZOBACTAM 4.5 GM in DEXTROSE 5% 100 ML IV ONE (01:00)
[2019-10-12] MEDS ORDERED: DAPTOmycin 275 MG in SYRINGE 0 ML IV SCH (01:00)
[2019-10-12] MEDS ORDERED: NORMOSOL-R 1,000 ML IV ONE (01:00)
[2019-10-12] MEDS ORDERED: LACTATED RINGER'S 1,000 ML IV SCH ×2 (01:00→02:00)
[2019-10-12] MEDS ORDERED: MAGNESIUM SULFATE / D5W 1 GM/100 ML BAG IV ONE (01:00)
[2019-10-12] MEDS ORDERED: Nursing to Pharmacy Communication ONE (01:48)
[2019-10-12] MEDS ORDERED: DEXAMETHASONE SOD PHOSPHATE 4 MG in SYRINGE 0 ML IV STA (01:48)
[2019-10-12] MEDS ORDERED: CLINDAMYCIN 600 MG in DEXTROSE 5% 50 ML IV STA (02:15)
[2019-10-12] MEDS ORDERED: HYDROmorphone INJ 0.5 MG/0.5 ML SYR IV PRN (02:29)
[2019-10-12] MEDS ORDERED: ACETAMINOPHEN 325 MG TAB PO PRN (02:32)
[2019-10-12 03:55] LABS: Hematocrit (blood only) 21.3 % (42-52); Hemoglobin 7.2 g/dL (14.0-18.0); Mean Corpuscular Hemoglobin 35.3 pg (25-34); Mean Corpuscular Hgb Conc 33.8 g/dL (32-36); Mean Corpuscular Volume 104.4 fL (80-100); Mean Platelet Volume 8.4 fL (7.4-10.4); Nucleated RBC # (auto) 0.03 K/uL (0-0); Nucleated RBC % (auto) 0.2 %; Platelet Count 276 K/uL (130-400); RDW Standard Deviation 61.2 fL (36.4-46.3); Red Blood Count 2.04 M/uL (4.7-6.1); White Blood Count 11.57 K/uL (4.8-10.8)
[2019-10-12 04:11] LABS: BUN Creatinine Ratio 15.3 (10-20); Calcium 9.2 mg/dl (8.5-10.1); Creatinine Clr Calc Pharmacy 49.4 ml/min; Est GFR (African American) 45.3; Est GFR (Non-African American) 39.1; Magnesium 1.8 mg/dl (1.8-2.4); Potassium 3.9 mmol/L (3.5-5.1)
[2019-10-12 04:12] LABS: Phosphorus 2.9 mg/dl (2.5-4.9)
--- NOTE | 2019-10-12 04:31 | ENT Consultation ---
Date of Consultation October 12, 2019 Assessment & Plan (1) Mass of left side of neck: (2) Tonsillar mass: (3) Necrotizing inflammation of lymph node: (4) Neck infection: The patient has history, imaging, and exam consistent with an advanced left tonsillar mass with cystic metastatic left level 2/3 lymphadenopathy. 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 We discussed this likely diagnosis and that his treatment course for his cancer will most likely involve PULMONOLOGIST. He appears to have developed a gas-producing superinfection of his cystic lymph nodes with secondary SIRS versus sepsis. I am concerned for necrotizing fasciitis, especially given his immunosuppression and diabetes, although his blood glucose was well controlled. There appears to be some periapical lucency over his 1st mandibular molar on imaging, but no obvious abscess on my exam. -Recommend transfer to tertiary care center - will likely need serial debridement, perhaps biopsy can be performed concomitantly. ENT needs are complex due to his underlying malignancy and likely future treatment with PULMONOLOGIST. Anticipate will be challenging to clear infection effectively but preserve adequate tissue overlying nodes/great vessels to avoid fistula after treatment. May also need OMFS evaluation. -Keep NPO except meds -Agree with broad-spectrum abx - dapto/zosyn, recommend adding clindamycin -Strict blood glucose control <120 -Continuous pulse ox -Nasal saline spray for postnasal drip -Please page with questions/new issues/airway concerns -Discussed with patient, hospitalist Dr. Ibrahim, bedside RN History of Present Illness Reason for Consultation: Left neck mass Attending Physician: Miracle Sharif MD History of Present Illness 54-year-old male with a history of sarcoidosis on azathioprine, prednisone, chronic kidney disease, type 2 diabetes admitted with left neck pain in the setting of newly diagnosis left tonsillar mass with left level 2/3 lymphadenopathy. Patient initially seen in the emergency room on 10/06 for these issues and CT neck with contrast showed a large ulcerative left tonsillar lesion and multiple cystic left level 2/3 nodes. A right likely odontogenic sinusitis was incidentally noted. COVID testing at that time was negative. He was in the process of being set up for an outpatient biopsy but his neck pain progressed, resulting in presentation to the ER again on 10/10/2019. The patient was admitted for an elevated white blood cell count, hypercalcemia. Initial blood cultures were negative. Patient initially improved but then developed worsening neck pain, fever to 38.1, mild hypotension. Repeat CT neck without contrast showed small locules of gas within cervical nodes and surrounding SCM. His antibiotics were broadened to daptomycin, Zosyn. His blood glucose has been well controlled since admission. Patient reports ongoing L throat pain, muffled voice for several weeks. He notes relatively rapid progression of his left neck swelling and discomfort over the past week. He denies recent dental infection or dental pain. He reports moderate dysphagia to solid foods but no signs or symptoms of aspiration. No otalgia, dyspnea, stridor. He has lost approximately 60-65 lb over the past 6 months, partially intentional. He denies a history of tobacco use. Allergies Allergy/AdvReac Type Severity Reaction Status Date / Time No Known Allergies Allergy Verified 10/07/19 13:47 Home Medications Home Medications Medication Instructions Recorded Confirmed Type amlodipine 10 mg PO QAM 06/21/18 10/10/19 History atorvastatin [Lipitor] 20 mg PO QAM 06/21/18 10/10/19 History azathioprine 200 mg PO DAILY 06/21/18 10/10/19 History bisoprolol fumarate 20 mg PO DAILY 06/21/18 10/10/19 History lisinopril [Zestril] 40 mg PO QAM 06/21/18 10/10/19 History prednisone See Rx Instructions .ROUTE .COMPLEX 06/21/18 10/10/19 History glipizide 10 mg PO HS 04/27/19 10/10/19 History glipizide 20 mg PO QAM 04/27/19 10/10/19 History aspirin 325 mg PO DAILY 10/07/19 10/10/19 History clotrimazole-betamethasone 1 applic TOPICAL UD 10/07/19 10/10/19 History omeprazole magnesium [Prilosec OTC] 20 mg PO DAILY 10/07/19 10/10/19 History sulfamethoxazole-trimethoprim 1 tab PO DAILY 10/07/19 10/10/19 History clobetasol 1 applic TOPICAL DAILY 10/10/19 10/10/19 History hydrocortisone 1 applic TOPICAL TID 10/10/19 10/10/19 History ketoconazole 1 applic TOPICAL BID 10/10/19 10/10/19 History nystatin-triamcinolone 1 applic TOPICAL TID 10/10/19 10/10/19 History oxycodone-acetaminophen 1 tab BID PRN 10/10/19 10/10/19 History Patient History Medical History CKD (chronic kidney disease), stage III (Chronic) Depression (Chronic) Diabetes mellitus, type II (Chronic) GERD (gastroesophageal reflux disease) (Chronic) PILO on CPAP (Chronic) Sarcoidosis (Chronic) Surgical History H/O hernia repair (Chronic) Family History Other Heart disease Social History Preferred Language: Ukrainian Communication Ability: Effective Cattle [employer] Required: No Beliefs That Will Affect Care: None Current Living Situation: Parent Other Information That Helps Us Care for You: No Feels Safe at Home: Yes Safety Concerns: Feels Safe At This Time Smoking Status: Former smoker Second Hand Exposure: Yes ; Hx Alcohol Use: Yes Alcohol type: hard liquor Alcohol Intake Frequency: Rarely Hx Substance Use: No Review of Systems Review of Systems: All systems reviewed & are unremarkable except as noted in HPI & below Physical Exam Physical Exam: General: The patient is well-developed, well-nourished, and in no acute distress. Head and Face: Skull: No obvious deformities Sinus tenderness: There is no tenderness to palpation of the sinuses. Salivary glands: The parotid and submandibular glands are normal in appearance and there are no masses on palpation. Facial strength: Facial motion is symmetric and without weakness. Eyes: Eyelids: There is no periorbital edema. Conjunctiva: There is no conjunctival erythema. Pupils: The pupils are equal, round, and reactive to light. Extraocular muscles: Extraocular movement is normal. Nystagmus: There is no nystagmus. Ears: Right auricle: The pinna is normally formed without skin lesion or mass. Left auricle: The pinna is normally formed without skin lesion or mass. Hearing: Clinical speech data librarian threshold testing is grossly normal. Nose: External: There is no gross external deformity, tenderness, or skin lesion or mass. Mucosa: There is no nasal mucosal edema, inflammation, lesion, or mass. Septum: The nasal septum is midline. Nasal cavity: There is no inferior turbinate hypertrophy, edema, inflammation, or mass bilaterally. The inferior meatus and middle meatus were clear bilaterally without mass, lesion, mucopurulence, or polyposis. Oral cavity/Oropharynx: Lips: There are no lip lesions or masses. Oral cavity: There is no inflammation, lesion, or mass involving the gums, gingiva, floor of mouth, buccal mucosa, retromolar trigone, hard palate, tongue. Patient has minor gingival erosion over left 1st mandibular molar, nontender to palpation without obvious abscess. Floor of mouth is soft. Oropharynx: There is a firm, tender approximately 4 cm exophytic and partially ulcerated left tonsillar mass involving the uvula, soft palate Neck: General: There are no visible scars or lesions involving the neck. There are no visible or palpable masses involving the neck. The trachea is midline. Lymph nodes: There is moderate to severe edema over the left levels 1 through 3 with a large (~5cm) palpable conglomeration of nodes in levels 2 and 3. There is mild overlying cellulitis. No significant palpable crepitus Thyroid: There is no visible or palpable thyroid enlargement or nodularity. Respiratory/Pulmonary: There is no stertor or stridor. There is normal respiratory effort without acute distress. Cardiovascular: There is no visible extremity edema. Skin: There are no visible lesions or masses involving the skin of the head and neck region. Neurological: Cranial nerves: Cranial nerve II is noted to be intact by grossly normal visual acuity. Cranial nerves III, IV, and are noted to be intact by normal extraocular movements. Cranial nerve V is noted to be intact by normal facial sensation. Cranial nerve VII is noted to be intact by symmetric and normal facial movement. Cranial nerve VIII is noted to be intact by a relatively normal clinical speech data librarian threshold. Cranial nerve IX is noted to be intact by an intact gag reflex and normal palatal movement. Cranial nerve X is noted to be intact by a normal voice. Cranial nerve XI is noted to be intact by normal shoulder and head movement. Cranial nerve XII is noted to be intact by normal symmetric tongue movement. Vestibular system: The patient has a normal gait. There is no spontaneous or gaze evoked nystagmus. Psychiatric: Mental status: The patient is awake and alert. Mood/affect: The patient has a normal mood and affect. Procedure: Flexible fiberoptic laryngoscopy Indication: L tonsillar mass, L neck infection Details: Following the topical application of afrin and lidocaine, the flexible laryngoscope was inserted into the nasal cavity. The septum, turbinates, and nasal mucosa were normal. The nasopharynx was normal. There is a large exophytic left tonsillar mass involving the glossotonsillar sulcus, L BOT/vallecula as described in the physical exam. The bilateral arytenoids, and bilateral aryepiglottic folds, and bilateral false vocal folds were normal. The true vocal folds were normal without masses or lesions. There was normal mobility of the true vocal folds bilaterally. The bilateral pyriform sinuses and postcricoid space was normal. The airway was patent. There was no pooling of secretions. No aspiration or penetration was visualized. The patient tolerated the procedure well. Results & Data ([facility]) Vital Signs (Past 12 Hours) Vital Signs Temp Pulse Pulse Resp BP Pulse Ox 10/12/19 03:28 96 H 10/12/19 02:00 37.6 C H 87 16 101/63 92 10/12/19 01:48 37.5 C 85 18 93/57 L 93 10/12/19 00:39 39.0 C H 90 84/52 L 10/11/19 22:55 38.1 C H 88 18 94/57 L 93 Laboratory Results WBC 18 --> 11 BG 80-90s Lactate 2.[address] neck without contrast 10/10 - per my read: large exophytic and ulcerated L tonsillar mass, multiple enlarged cystic L level II/III lymph nodes, some with small locules of gas. Interval fat stranding and small areas of subcutaneous emphysema over L SCM, new since prior CT. Poss periapical lucency of L 1st mandibular molar. Incidental R maxillary sinusitis. PG Care Time/CCT Total # of Minutes Spent Total Time Spent with Patient: Total time spent is greater than 50% in coordination of care (as documented) at patient's floor/unit and/or counseling patient: Coding Level of Care Code 45143 Inpt Consult Level 4 (25 - SIGNIFICANT, SEPARATELY IDENTIFIABLE ) Diagnoses Mass of left side of neck R22.1 Tonsillar mass J35.8 Necrotizing inflammation of lymph node L04.9 Neck infection L08.9
[2019-10-12 04:33] LABS: Basophils # (auto) 0.02 K/uL (0-0.2); Basophils % (auto) 0.2 %; Dohle Bodies 2+; Eosinophils # (auto) 0.06 K/uL (0-0.5); Eosinophils % (auto) 0.5 %; Immature Granulocytes # (auto) 0.26 K/uL (0.00-0.02); Immature Granulocytes % (auto) 2.2 %; Lymphocytes # (auto) 0.17 K/uL (1.2-3.4); Lymphocytes % (auto) 1.5 %; Monocytes # (auto) 0.34 K/uL (0.11-0.59); Monocytes % (auto) 2.9 %; Neutrophils # (auto) 10.72 K/uL (1.4-6.5); Neutrophils % (auto) 92.7 %; Schistocytes 1+; Spherocytes 1+; Target Cells 1+; Toxic Granulation 2+; Toxic Vacuolation 1+
--- NOTE | 2019-10-12 05:27 | Communication Note ---
Date of Service: October 12, 2019 Dr. Davis recommends transfer to tertiary center for ENT/multi specialty capabilities. Case discussed with Bahman ([facility] specialist manager business information). She agrees to transfer under hospitalist service. Dr. Oliver ([facility] hospitalist manager business information) kindly accepted patient for transfer. Patient updated of developments and was agreeable to plan of care.
[2019-10-12 05:57] LABS: Estimated Average Glucose 146 mg/dl; Hemoglobin A1C 6.7 % (4.5-5.6)
[2019-10-12] MEDS ORDERED: CLINDAMYCIN CONSULT ACTIVE PRN (05:59)
[2019-10-12] MEDS ORDERED: PIPERACILLIN/TAZOBACTAM 3.375 GM in DEXTROSE 5% 100 ML IV SCH (06:00)
[2019-10-12] MEDS ORDERED: INSULIN ASPART 100 UNITS/ML 3 ML PEN SC SCH ×2 (06:00→08:00)
--- NOTE | 2019-10-12 06:08 | Discharge Summary ---
Date of Service October 12, 2019 Admission HPI Per Admitting Provider 53yo M with a PMH of sarcoidosis, PILO on CPAP, CKD IIIb, DM II, GERD, depression, Hypertension, Hx UGI bleed, anemia present to the ER for worsening left side neck pain. Pt was in the ER on 10/06 for throat pain where he had soft tissue CT neck done that showed large ulcerated left tonsillar mass, measuring up to 5.9 x 5.7 cm and demonstrate numerous necrotic left cervical lymph nodes consistent with fuad spread of disease. CT on 10/06 was highly suggestive of squamous cell carcinoma. At that time ENT was contacted and recommended to r/o COVID 19 before proceed to any invasive procedure or biopsy. Pt said that pain has been getting worst in the last few days. He said that his voice changes. Pt said that he is not a smoker but exposed from 2nd hand smoker ( is a smoker). He said that he drinks alcohol socially. Denies any fever, SOB, chills, cough, dysphagia and weight loss. Discharge Data Consultations 10/10/19 18:04 ED Decision to Admit Stat 10/10/19 22:24 Consult Otolaryngology (Head and Neck) Routine 10/11/19 06:00 Consult Nephrology Routine 10/12/19 05:26 Burn CD for patient Stat Hospital Course (1) Hypotension: Made aware by RN around 11 PM of temperature spike of 38. SBP 90s as per RN. Worsening left-sided neck pain as per patient. No chest pain, no S OB. Dry cough symptoms. CT neck initial read : (10/10) Large ulcerated left tonsillar mass and lymphadenopathy and gas noted in the level 2 lymph node left. New gas tracking along the outer aspect of the sternocleido mastoid muscle increased now with extensive fat stranding in left greater than the right bilateral submandibular spaces. Platysmal thickening and subcutaneous fat stranding in the anterior neck bilaterally. Given rapid progression, superimposed infection should be considered. Narrowing airway appears progressed from prior now severe but this may be related to breath-holding during exam. CXR as per my interpretation: Atelectasis, cardiomegaly Hypotension plus fever spike Multifactorial : Possible sepsis with lactic acid and patient secondary to infected left neck mass (Immunocompromised patient given history of renal sarcoidosis on home Imuran/prednisone Rx) Possible adrenal insufficiency Transfer to medical telemetry for closer monitoring Appropriate to hold home antihypertensives for now hypotension Cultures, Daptomycin, Zosyn for now IVF, follow lactic acid Decadron 1 dose for possible adrenal insufficiency Continue prednisone Hold Imuran for now given septic state until further discussion with patient's audit senior associate from [place]. Update ENT specialist operations administrative assistant of CT findings. N.p.o. for now in anticipation of procedure ADDENDUM : Case discussed with Dr. Davis ([facility] specialist operations administrative assistant). She recommends adding clindamycin to antibiotic regimen for possible incipient necrotizing fasciitis. Will come to hospital to evaluate patient. Following bedside exam and case review, Dr. Davis recommended transfer to tertiary center for ENT/multi specialty capabilities. Case discussed with Dr. Ruggiero ([facility] specialist operations administrative assistant). She agrees to patient transfer under [facility] hospitalist service admission. Dr. Oliver ([facility] hospitalist operations administrative assistant) kindly accepted patient for transfer. Patient updated of developments and was agreeable to plan of care.
--- NOTE | 2019-10-12 06:42 | XRay Report ---
XR chest 1V portable CLINICAL HISTORY: cough COMPARISON STUDY: 10/10/2019 FINDINGS: The heart is mildly enlarged. There is no failure. There is no focal pulmonary consolidatio n. There is minor blunting of the left lateral costophrenic angle.[ IMPRESSION: 1. Mild cardiomegaly 2. No evidence of focal pulmonary consolidation 3. Minor blunting of the left lateral costophrenic angle ACT 112: Negative or not required by law. Electronically signed by: João Lantigua M.D. 10/12/2019 6:41 AM
--- NOTE | 2019-10-12 07:48 | CT Scan Report ---
CT soft tissue neck wo con CT DOSE: 740.33 mGy.cm CLINICAL HISTORY: Worsening neck pain. Neck mass. TECHNIQUE: The patient was scanned without intravenous contrast. A dose lowering technique was utili zed adhering to the principles of ALARA. COMPARISON STUDY: October 10, 2019 FINDINGS: Visualized portions of the lung apices are unremarkable. No thyroid masses are visualized on this noncontrast study. No parotid gland masses are visualized. The right maxillary sinus is opacified. There is left maxillary sinus mucosal thickening. There is mi ld ethmoid sinus mucosal thickening. There is a 5.5 cm left-sided tonsillar mass with secondary airway distortion. There is vallecular and piriform sinus distortion. There is pathologic left cervical lymphadenopathy with a 42 mm lymph node /mass located deep to the left sternocleidomastoid. There is gas present within the left neck includi ng a 26 mm left submandibular gas containing cystic lesion. This catheter could be secondary to super infection of a necrotic node, with possible necrotizing fasciitis. IMPRESSION: 1. Large left sided tonsillar mass with pathologic left cervical lymphadenopathy. There is gas presen t within a previously identified necrotic lymph node, and there is evidence for subcutaneous gas trac jailene along the left sternocleidomastoid muscle. There is a left-sided subcutaneous stranding. The fin dings are concerning for a superimposed infection with possible necrotizing fasciitis. There is incre asing mass effect on the airway. ACT 112: Negative or not required by law. Electronically signed by: João Lantigua M.D. 10/12/2019 7:47 AM
[2019-10-12] MEDS ORDERED: CLINDAMYCIN 600 MG/54 ML BAG IV SCH (08:00)
[2019-10-12] MEDS ORDERED: predniSONE 20 MG TAB PO SCH (09:00)
[2019-10-12] MEDS ORDERED: predniSONE 10 MG TABLET PO SCH (21:00)
--- NOTE | 2019-10-13 12:26 | Pharmacy Report ---
ED Pharmacist Culture FollowUP - Culture Follow Up Note Date of Service: October 13, 2019 Notes:: GPC isolated from anaerobic specimen only from one of two samples of blood cultures obtained at the same time (10/09 @ 1929). No rapid PCR tests for Staph aureus or MRSA are performed from anaerobic growth. Repeat set of blood cultures obtained over 24 hours after the first set are also negative Patient was transferred from [facility] to [facility]. Called above facility, spoke with KELLY Martinez taking care of the patient. Provided verbal report of above result. Faxed a copy of the result to , read back x1. Fax confirmation received.
[2019-10-16 19:19] LABS: Albumin 2.5 g/dL (3.8-4.8); Alpha 1 Globulin 0.5 g/dL (0.2-0.3); Beta-1-Globulin 0.3 g/dL (0.4-0.6); Beta-2-Globulin 0.4 g/dL (0.2-0.5); Gamma Globulin 0.6 g/dL (0.8-1.7); Monoclonal Protein Band 1 DNR g/dL (NONE DETECTED); Monoclonal Protein Band 2 DNR g/dL (NONE DETECTED); Monoclonal Protein Band 3 DNR g/dL (NONE DETECTED); PTH Related Protein 27 pg/mL (14-27); Total Protein 5.4 g/dL (6.1-8.1)
== END 2019-10-12 08:15 | disposition short-term general hospital (02) | DRG 557 ==
LOC: ED 15:27 → 3E 19:27 → 2W 10-12 02:31